=== PATIENT | male | born 1965 | race Caucasian/White ===

== ENCOUNTER 2018-01-04 06:45 | Day surgery (SDC) | END 2018-01-04 11:43 | disposition home or self-care (01) ==

== ENCOUNTER 2018-01-20 08:48 | Inpatient (IN) | END 2018-01-30 19:24 | disposition home health service (06) | DRG 872 ==

== ENCOUNTER 2018-09-07 19:18 | Inpatient (IN) | payer BC, OTHER ==
[~2018-09-07] VITALS: Ht 167.6 cm; Wt 130.6 kg
[~2018-09-07 19:18] MED LIST: ASPI-817 PO; CEFT1FRO2 IV; CLAR500T PO; Insulin Glargine SC; METF-849 PO; NOVO3I SC; PANT40TA4 PO; Vancomycin Iv Per Pharmacy XX
--- NOTE | 2018-09-07 19:52 | ERD ---
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 He states the skin "burst" over the right lateral foot yesterday and he is experienced some discharge from the right lateral foot as well as pain. He denies recent antibiotic therapy. He has had a fever today, denies cough or URI symptoms, no chest pain or shortness of breath, no abdominal pain. ROS All systems reviewed and are negative except as per history of present illness. Medications Home Meds Active Scripts Ceftriaxone Na/Dextrose,Iso (Ceftriaxone 1 gm Piggyback) 1 Gm/50 Ml Froz.piggy, 1 GM IV Q24H, #42 Last day 03/13/2018. Prov:LACEY MEYER NP 01/30/18 [Vancomycin Iv Per Pharmacy] 1 EA EACH No Conflict Check, 0 EA XX .PER PROTOCOL Last day 03/05/2018. Prov:LACEY MEYER NP 01/30/18 Clarithromycin* (Clarithromycin*) 500 Mg Tablet, 250 MG PO BID, #20 TAB Prov:LACEY MEYER NP 01/30/18 Metformin* (Glucophage*) 500 Mg Tab, 500 MG PO BID WITH MEALS, #60 TAB Prov:LACEY MEYER NP 01/30/18 Insulin Aspart* (Novolog Insulin Pen*) 100 Unit/Ml Soln, 6 UNIT SC WITH MEALS, #1 Prov:LACEY MEYER NP 01/30/18 [Insulin Glargine] 100 UNITS/ML SOLN No Conflict Check, 18 UNITS SC DAILY@1999, #1 Prov:LACEY MEYER NP 01/30/18 Pantoprazole* (Pantoprazole*) 40 Mg Tablet., 40 MG PO BID@, #60 Prov:LACEY MEYER NP 01/30/18 Aspirin* (Aspirin* EC) 81 Mg Tablet., 81 MG PO DAILY, #30 Prov:LACEY MEYER NP 01/30/18 Allergies Allergies: Coded Allergies: No Known Allergy (Unverified , 01/04/18) PMhx/Soc History of sepsis due to right lower extremity cellulitis and osteomyelitis of the right talus and calcaneus, gastritis, diabetes mellitus, anemia, peripheral vascular disease, right Charcot foot, right third toe amputation History of Surgery: Yes (rremoval of 3rd toe of the Rt foot) Anesthesia Reaction: No Hx Neurological Disorder: No Hx Respiratory Disorders: No Hx Cardiac Disorders: Yes (elevated BP) Hx Psychiatric Problems: No Hx Miscellaneous Medical Probl: Yes (diabetes mellitus type 2, obesity, and diabetic neuropathy) Hx Alcohol Use: Yes Hx Substance Use: No Hx Tobacco Use: No FmHx Family History: No diabetes Physical Exam Vitals Vital Signs Date Temp Pulse Resp B/P (MAP) Pulse Ox O2 O2 Flow FiO2 Time Delivery Rate 09/07/18 99.2 93 18 146/64 96 Room Air 19:30 (91) 09/07/18 101.1 100 24 150/67 96 19:27 (94) Physical Exam Const: No acute distress, febrile, well-developed well-nourished Resp: Clear to auscultation bilaterally Cardio: Tachycardic and regular, no murmurs Skin: Large zone of skin induration and erythema to the right foot over the plantar and lateral aspects with a large circular skin ulcer to the lateral aspect of the right foot with serosanguineous discharge and overall bony deformity consistent with Charcot foot. Ext: No cyanosis, calves symmetrical, 1+ pitting edema in the lower extremities bilaterally Neur: Awake and alert x3, no focal deficits or facial asymmetry Psych: Normal Mood and Affect Result Diagram: 09/07/18194709/07/181947 Results 24 hrs Laboratory Tests Test 09/07/18 19:45 09/07/18 19:48 POC Venous Lactate 1.9 mmol/L White Blood Count 18.0 10^3/ul Red Blood Count 4.96 10^6/ul Hemoglobin 13.1 g/dl Hematocrit 40.7 % Mean Corpuscular Volume 82.1 fl Mean Corpuscular Hemoglobin 26.4 pg Mean Corpuscular Hemoglobin Concent 32.2 g/dl Red Cell Distribution Width 13.0 % Platelet Count 247 10^3/UL Mean Platelet Volume 11.0 fl Immature Granulocytes % 0.500 % Neutrophils % 79.3 % Lymphocytes % 10.7 % Monocytes % 9.2 % Eosinophils % 0.1 % Basophils % 0.2 % Nucleated Red Blood Cells % 0.0 /100WBC Immature Granulocytes # 0.090 10^3/ul Neutrophils # 14.3 10^3/ul Lymphocytes # 1.9 10^3/ul Monocytes # 1.7 10^3/ul Eosinophils # 0.0 10^3/ul Basophils # 0.0 10^3/ul Nucleated Red Blood Cells # 0.0 10^3/ul Prothrombin Time 13.9 Sec Prothrombin Time Ratio 1.1 INR International Normalized Ratio 1.06 Activated Partial Thromboplast Time 40.1 Sec Sodium Level 134 mmol/L Potassium Level 3.8 mmol/L Chloride Level 95 mmol/L Carbon Dioxide Level 26 mmol/L Anion Gap 13 Blood Urea Nitrogen 19 mg/dl Creatinine 0.97 mg/dl Est Glomerular Filtrat Rate mL/min > 60 mL/min Glucose Level 249 mg/dl Calcium Level 8.7 mg/dl Total Bilirubin 0.6 mg/dl Direct Bilirubin 0.00 mg/dl Indirect Bilirubin 0.6 mg/dl Aspartate Amino Transf (AST/SGOT) 32 IU/L Alanine Aminotransferase (ALT/SGPT) 17 IU/L Alkaline Phosphatase 147 IU/L Total Protein 8.8 g/dl Albumin 3.9 g/dl Globulin 4.90 g/dl Albumin/Globulin Ratio 0.79 Lipase 14 U/L Current Medications Medications Dose Sig/Jewel Start Time Status Last (Trade) Ordered Route PRN Stop Time Admin Dose Reason Admin Ceftriaxone 50 ml @ ONCE ONCE 09/07/18 DC 09/07/18 Sodium 100 mls/hr IVPB 20:00 20:06 09/07/18 20:29 Piperacillin 100 ml @ ONCE ONCE 09/07/18 DC 09/07/18 Sod/ 200 mls/hr IVPB 20:00 20:28 Tazobactam 09/07/18 20:29 Sod Vancomycin 250 ml @ ONCE ONCE 09/07/18 DC 09/07/18 HCl 125 mls/hr IVPB 20:00 21:07 09/07/18 21:59 Ibuprofen 600 mg ONCE ONCE 09/07/18 DC 09/07/18 (Motrin) PO 20:00 20:07 09/07/18 20:01 Sodium 3,000 ml BOLUS OVER 2 09/07/18 DC 09/07/18 Chloride HOURS STAT 19:56 20:04 (NS) IV* 09/07/18 20:00 Procedures/MDM IV line was established patient was placed on cardiac care unit nurse rhythm strip revealed a sinus rhythm at about 90 bpm with upright P and T waves. Patient was febrile, blood and urine cultures have been ordered results are pending I will follow-up. EKG performed, read by me revealed a normal sinus rhythm at 94 bpm, left axis deviation, right ventricular conduction delay QRS duration 114 ms, no concerning ST elevations or depressions noted Chest X-ray 1V Interpreted by me: Soft Tissue: No acute abnormalities Bones: No acute abnormalities Mediastinum/Cardiac Silhouette/Lungs: No acute abnormalities Three-view x-ray of the right foot performed, read by me there is severe osteoarthritic changes to the midfoot consistent with severe Charcot foot and overall degenerative changes, right third toe amputation, no acute fracture dislocation noted. I administered 3 L normal saline IV, ibuprofen 600 mg p.o., ceftriaxone 1 g IV, vancomycin 1 g IV, Zosyn 3.375 g IV. CBC reveals a leukocytosis at 18, electrolytes revealed dehydration with a BU N/creatinine of 19/1, liver function tests were normal, lactic acid level was low at 1.9. I do not suspect sepsis. Patient admitted to [facility] for continued IV antibiotic therapy Departure Diagnosis: Primary Impression: Cellulitis of right foot Additional Impressions: Diabetic ulcer of right foot Diabetic foot ulcer location: midfoot Diabetes mellitus type: type 2 Non- pressure ulcer stage: limited to breakdown of skin Qualified Codes: E11.621 - Type 2 diabetes mellitus with foot ulcer; L97.411 - Non-pressure chronic ulcer of right heel and midfoot limited to breakdown of skin Charcot's joint of right foot Condition: ELIANE Castle MD Sep 07, 2018 19:52
[2018-09-07] MEDS ORDERED: SODIUM CHLORIDE 0.9% 1L BAG IV* STA (19:56)
[2018-09-07] MEDS ORDERED: VANCOMYCIN 1 GM (PMX) 250 ML IVPB ONE (20:00)
[2018-09-07] MEDS ORDERED: IBUPROFEN 600 MG TAB PO ONE (20:00)
[2018-09-07] MEDS ORDERED: PIPER-TAZO 3.375 GM IV (PMX) 100 ML IVPB ONE (20:00)
[2018-09-07] MEDS ORDERED: CEFTRIAXONE 1 GM/50 ML (PMX) 50 ML IVPB ONE (20:00)
[2018-09-08] VITALS (10 sets, daily range): BP systolic 141–178; BP diastolic 60–87; PULSE 63–110; RESP 16–32; Ht 167.6 cm; Wt 130.6 kg
[2018-09-08] MEDS ORDERED: PENDING SANTYL ORDER FOR WOUND CARE XX PRN (01:30)
[2018-09-08] MEDS ORDERED: COLLAGENASE 5 GM (UD JAR) TOP ONE (01:33)
[2018-09-08] MEDS ORDERED: COLLAGENASE 5 GM (UD JAR) TOP PRN (02:00)
[2018-09-08] MEDS ORDERED: INSU100C SQ (02:01)
[2018-09-08] MEDS ORDERED: NACL 0.9% 3 ML SYG IV SCH (02:30)
[2018-09-08] MEDS ORDERED: ACETAMINOPHEN 325 MG TAB PO PRN (02:30)
[2018-09-08] MEDS ORDERED: ALBUTEROL/IPRATROPIUM (NEB) 3 ML AMP HHN PRN (02:30)
[2018-09-08] MEDS ORDERED: ONDANSETRON 4 MG INJ IV PRN (02:30)
[2018-09-08] MEDS ORDERED: HYDROCODONE/APAP (5/325) TAB PO PRN ×2 (02:30)
[2018-09-08] MEDS ORDERED: VANCOMYCIN IV PER PHARMACY XX SCH (02:30)
[2018-09-08] MEDS ORDERED: VANCOMYCIN 1 GM 250 ML IVPB ONE (03:00)
[2018-09-08] MEDS: SOD CHLORIDE 0.9% 1,000 ML IV SCH ×2 (03:29→12:30)
[2018-09-08] MEDS: PANTOPRAZOLE (EC) 40 MG TAB PO SCH ×2 (06:16→17:13)
--- NOTE | 2018-09-08 07:33 | HP ---
Date/Time of Note Date/Time of Note DATE: 09/07/18 TIME: 22:00 Assessment/Plan VTE Prophylaxis Pharmacological prophylaxis: heparin Lines/Catheters IV Catheter Type (from Nrsg): [place] Assessment/Plan Assessment/Plan 1. Right foot infection, with possible osteomyelitis -IV antibiotic -Podiatry consult -We will let podiatry decide about the need for MRI -ID and wound care consult -Wound culture 2. Hypertension: Continue meds, adjust as needed 3. Dyslipidemia: Continue statin 4. Morbid obesity with a BMI of 46: Weight reduction advised 5. Insulin-dependent diabetes: Continue insulin, adjust as needed 6. History of gastric ulcer: PPI Result Diagram: 09/08/18 0653 09/07/181947 Results 24hrs Laboratory Tests Test 09/07/18 19:45 09/07/18 19:48 09/07/18 22:42 09/08/18 06:53 POC Venous Lactate 1.9 White Blood Count 18.0 #H 14.4 H Red Blood Count 4.96 # 4.31 L Hemoglobin 13.1 #L 11.4 L Hematocrit 40.7 #L 35.7 L Mean Corpuscular 82.1 82.8 Volume Mean Corpuscular 26.4 L 26.5 L Hemoglobin Mean Corpuscular 32.2 31.9 L Hemoglobin Concent Red Cell 13.0 13.2 Distribution Width Platelet Count 247 # 194 # Mean Platelet Volume 11.0 H 10.0 Immature 0.500 H 0.700 H Granulocytes % Neutrophils % 79.3 H 75.6 Lymphocytes % 10.7 L 11.0 L Monocytes % 9.2 11.1 H Eosinophils % 0.1 1.3 Basophils % 0.2 0.3 Nucleated Red Blood 0.0 0.0 Cells % Immature 0.090 H 0.100 H Granulocytes # Neutrophils # 14.3 H 10.9 H Lymphocytes # 1.9 1.6 Monocytes # 1.7 H 1.6 H Eosinophils # 0.0 0.2 Basophils # 0.0 0.1 Nucleated Red Blood 0.0 0.0 Cells # Prothrombin Time 13.9 Prothrombin Time 1.1 Ratio INR International 1.06 Normalized Ratio Activated 40.1 H Partial Thromboplast Time Sodium Level 134 L Potassium Level 3.8 Chloride Level 95 L Carbon Dioxide Level 26 Anion Gap 13 Blood Urea Nitrogen 19 Creatinine 0.97 Est Glomerular > 60 Filtrat Rate mL/min Glucose Level 249 H Calcium Level 8.7 Total Bilirubin 0.6 Direct Bilirubin 0.00 Indirect Bilirubin 0.6 Aspartate Amino 32 Transf (AST/SGOT) Alanine 17 Aminotransferase (AL T/SGPT) Alkaline Phosphatase 147 H Total Protein 8.8 H Albumin 3.9 Globulin 4.90 H Albumin/Globulin 0.79 Ratio Lipase 14 L Lactic Acid Level 1.3 HPI/ROS Admit Date/Time Admit Date/Time Sep 07, 2018 at 20:34 Hx of Present Illness Patient is a 53-year-old obese male with a history of hypertension, insulin- dependent diabetes, gastric ulcer, severe right foods Charcot deformity, right foot infection, right third toe amputation who presented to ER complaining of right foods swelling and drainage. He said that he had similar problems in January of last year. He was wearing a special shoe, however for the past 2 months he has not been wearing it and that he thinks that what caused his current problem. He said it started out as a swelling and then started leaking. Right foot x-ray in the ER shows a severe Charcot deformity of the need food bolus and a severe erosive change, unchanged from the x-ray from February and in January of last year. PMH/Family/Social Past Medical History Past Surgical Hx: other (see hpi) Family History Significant Family History: no pertinent family hx Social History Alcohol Use: none Smoking Status: Never smoker Drug Use: none Exam Constitutional: other (no acute distress) Head: normocephalic, atraumatic Eyes: EOMI, PERRL Respiratory: clear to auscultation, normal air movement Cardiovascular: nl pulses Gastrointestinal: soft Extremities: normal pulses Medications Current Medications Collagenase (Santyl) 1 applic DAILY TOP ; Start 09/08/18 at 09:00 Collagenase (Santyl) 1 applic PRN PRN TOP WHEN SOILED Last administered on 09/08/18at 01:55; Admin Dose 1 APPLIC; Start 09/08/18 at 02:00 Sodium Chloride 1,000 ml @ 100 mls/hr Q10H IV Last administered on 09/08/18at 03:29; Admin Dose 100 MLS/HR; Start 09/08/18 at 02:30; Stop 09/08/18 at 23:00 IV Flush (NS 3 ml) 3 ml PER PROTOCOL IV ; Start 09/08/18 at 02:30 Ondansetron HCl (Zofran Inj) 4 mg Q6H PRN IV NAUSEA/VOMITING; Start 09/08/18 at 02:30 Acetaminophen (Tylenol Tab) 650 mg Q6H PRN PO .PAIN 1-3 OR TEMP; Start 09/08/18 at 02:30 Acetaminophen/ Hydrocodone Bitart ([place] (5/325)) 1 tab Q6H PRN PO .MOD PAIN 4- 6; Start 09/08/18 at 02:30 Acetaminophen/ Hydrocodone Bitart ([place] (5/325)) 2 tab Q6H PRN PO .SEVERE PAIN 7-10; Start 09/08/18 at 02:30 Heparin Sodium (Porcine) (Heparin (5000 Units/1ml)) 5,000 unit Q12 SC ; Start 09/08/18 at 09:00 Albuterol/ Ipratropium (Duoneb) 3 ml Q2H RESP THERAPY PRN HHN SHORTNESS OF BREATH; Start 09/08/18 at 02:30 Aspirin (Halfprin) 81 mg DAILY PO ; Start 09/08/18 at 09:00 Insulin Aspart (Novolog Insulin Pen) 6 unit WITH MEALS SC ; Start 09/08/18 at 08:00 Pantoprazole (Protonix Tab) 40 mg BID@06,18 PO Last administered on 09/08/18at 06:16; Admin Dose 40 MG; Start 09/08/18 at 06:00 Vancomycin HCl (Vanco Iv Per Pharmacy) VANCOMYCIN PER PHARMACY PER PROTOCOL XX ; Start 09/08/18 at 02:30 Cefepime HCl 50 ml @ 100 mls/hr Q12 IVPB ; Start 09/08/18 at 09:00 Diagnostic Test (Pha) (Accu-Chek) XX ; Start 09/09/18 at 02:00 Insulin Aspart (Novolog Insulin Pen) NOVOLOG *MILD* ALGORITHM WITH MEALS BEDTIME SC ; Start 09/08/18 at 08:00 Insulin Glargine (Lantus) 18 units DAILY@2000 SC ; Start 09/08/18 at 20:00 Vancomycin HCl 2 gm/Sodium Chloride 500 ml @ 125 mls/hr Q12H IVPB ; Start 09/08/18 at 09:00 Miscellaneous Information (*Rx Drug Level Order Reminder*) VANCOMYCIN TROUGH LEVEL 2000 ONCE XX ; Start 09/09/18 at 20:00; Stop 09/09/18 at 20:01 Coded Allergies: No Known Allergy (Unverified , 01/04/18) Family History Significant Family History: diabetes Social History Smoking Status: Never smoker Exam/Review of Systems Vital Signs Vitals Vital Signs Date Temp Pulse Resp B/P (MAP) Pulse Ox O2 O2 Flow FiO2 Time Delivery Rate 09/08/18 98.3 63 18 146/74 99 02:48 (98) 09/08/18 Room Air 00:27 Intake and Output 09/07/18 09/07/18 09/08/18 1515:00 23:00 07:00 IntakeIntake Total 3650 ml BalanceBalance 3650 ml HUMA LACKEY MD Sep 08, 2018 07:33
[2018-09-08] MEDS: INSULIN ASPART [NOVOLOG] 3 ML PEN SC SCH ×7 (08:38→20:27)
[2018-09-08] MEDS: ASPIRIN (EC) 81 MG TAB PO SCH (08:40)
[2018-09-08] MEDS: HEPARIN 5,000 UNIT/1 ML VIAL SC SCH ×2 (08:41→20:28)
[2018-09-08] MEDS: COLLAGENASE 5 GM (UD JAR) TOP SCH (08:41)
[2018-09-08] MEDS: CEFEPIME 1GM/50 ML (PMX) 50 ML IVPB SCH ×2 (08:41→23:01)
[2018-09-08] MEDS ORDERED: VANCOMYCIN HCL 2 GM in SOD CHLORIDE 0.9% 500 ML IVPB SCH (09:00)
[2018-09-08] MEDS: VANCOMYCIN 1 GM 250 ML IVPB SCH ×2 (11:37→20:24)
--- NOTE | 2018-09-08 12:15 | PN ---
Date/Time of Note Date/Time of Note DATE: 09/08/18 TIME: 12:15 Objective Vitals Vital Signs Date Temp Pulse Resp B/P (MAP) Pulse Ox O2 O2 Flow FiO2 Time Delivery Rate 09/08/18 97.8 87 18 147/61 99 07:52 (89) 09/08/18 Room Air 00:27 Intake and Output 09/07/18 09/07/18 09/08/18 1515:00 23:00 07:00 IntakeIntake Total 3650 ml BalanceBalance 3650 ml Results Result Diagram: 09/08/18 0653 09/08/18 0653 Medications Medications Current Medications Collagenase (Santyl) 1 applic DAILY TOP Last administered on 09/08/18at 08:41; Admin Dose 1 APPLIC; Start 09/08/18 at 09:00 Collagenase (Santyl) 1 applic PRN PRN TOP WHEN SOILED Last administered on 09/08/18at 01:55; Admin Dose 1 APPLIC; Start 09/08/18 at 02:00 Sodium Chloride 1,000 ml @ 100 mls/hr Q10H IV Last administered on 09/08/18at 03:29; Admin Dose 100 MLS/HR; Start 09/08/18 at 02:30; Stop 09/08/18 at 23:00 IV Flush (NS 3 ml) 3 ml PER PROTOCOL IV ; Start 09/08/18 at 02:30 Ondansetron HCl (Zofran Inj) 4 mg Q6H PRN IV NAUSEA/VOMITING; Start 09/08/18 at 02:30 Acetaminophen (Tylenol Tab) 650 mg Q6H PRN PO .PAIN 1-3 OR TEMP; Start 09/08/18 at 02:30 Acetaminophen/ Hydrocodone Bitart ([place] (5/325)) 1 tab Q6H PRN PO .MOD PAIN 4- 6; Start 09/08/18 at 02:30 Acetaminophen/ Hydrocodone Bitart ([place] (5/325)) 2 tab Q6H PRN PO .SEVERE PAIN 7-10; Start 09/08/18 at 02:30 Heparin Sodium (Porcine) (Heparin (5000 Units/1ml)) 5,000 unit Q12 SC Last administered on 09/08/18at 08:41; Admin Dose 5,000 UNIT; Start 09/08/18 at 09:00 Albuterol/ Ipratropium (Duoneb) 3 ml Q2H RESP THERAPY PRN HHN SHORTNESS OF BREATH; Start 09/08/18 at 02:30 Aspirin (Halfprin) 81 mg DAILY PO Last administered on 09/08/18 08:40; Admin Dose 81 MG; Start 09/08/18 at 09:00 Insulin Aspart (Novolog Insulin Pen) 6 unit WITH MEALS SC Last administered on 09/08/18 08:39; Admin Dose 6 UNIT; Start 09/08/18 at 08:00 Pantoprazole (Protonix Tab) 40 mg BID@06,18 PO Last administered on 09/08/18 06:16; Admin Dose 40 MG; Start 09/08/18 at 06:00 Vancomycin HCl (Vanco Iv Per Pharmacy) VANCOMYCIN PER PHARMACY PER PROTOCOL XX ; Start 09/08/18 at 02:30 Cefepime HCl 50 ml @ 100 mls/hr Q12 IVPB Last administered on 09/08/18 08:41; Admin Dose 100 MLS/HR; Start 09/08/18 at 09:00 Diagnostic Test (Pha) (Accu-Chek) 1 ea 02 XX ; Start 09/09/18 at 02:00 Insulin Aspart (Novolog Insulin Pen) NOVOLOG *MILD* ALGORITHM WITH MEALS BEDTIME SC Last administered on 09/08/18 08:38; Admin Dose 1 UNIT; Start 09/08/18 at 08:00 Insulin Glargine (Lantus) 18 units DAILY@2000 SC ; Start 09/08/18 at 20:00 Miscellaneous Information (*Rx Drug Level Order Reminder*) VANCOMYCIN TROUGH LEVEL 0200 ONCE XX ; Start 09/09/18 at 02:00; Stop 09/09/18 at 02:01 Vancomycin HCl 250 ml @ 125 mls/hr Q8H IVPB Last administered on 09/08/18at 11:37; Admin Dose 125 MLS/HR; Start 09/08/18 at 11:00 VTE Prophylaxis Risk score (from Nsg)>0 risk: 4 SCD applied (from Nsg): Yes Lines/Catheters IV Catheter Type: Mor[place] in Place: No Assessment/Plan Hospital Course This is a short progress note as H&P was done earlier today. 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 Mclaughlin and, also consulted infectious disease. Continue IV antibiotics. Pending Dr. Mclaughlin recommendations regarding MRI. ELIANE RUSSELL Sep 08, 2018 12:15
--- NOTE | 2018-09-08 12:36 | CONS ---
DATE OF ADMISSION: 09/07/2018 DATE OF CONSULTATION: 09/08/2018 CONTINUATION: FAMILY HISTORY: Noncontributory, as noted. SOCIAL HISTORY: He does drink. He does not smoke or abuse drugs. ALLERGIES: NONE TO PENICILLIN, SULFA OR FOODS. MEDICATIONS: Per chart. REVIEW OF SYSTEMS: Noncontributory. PHYSICAL EXAMINATION: GENERAL: The patient is in no acute distress. VITAL SIGNS: Temperature 101.1 in the emergency room. SKIN: Without generalized rash. HEENT: Within normal limits. NECK: Supple. LYMPH NODES: None palpable. CHEST: Decreased breath sounds at the bases. HEART: Tachycardic without murmur or gallop. ABDOMEN: Soft, nontender without organosplenomegaly or masses. EXTREMITIES: No cyanosis or clubbing. He has 1+ edema. There is a large zone of skin induration an d erythema in the right foot over the plantar and lateral aspect with large circular skin ulcer to th e lateral aspect of the right foot with serosanguineous discharge overall consistent seen with [place] t foot. RECTAL AND GENITAL: Deferred. NEUROLOGIC: No focal neurological abnormalities. ANCILLARY LABORATORY DATA: White count of 18,000, H and H of 13.1 and 40.7, platelet count 247,000. BUN and creatinine is 19/0.97, glucose of 249. The patient has 79% neutrophils. He was placed on v ancomycin and Zosyn. DIAGNOSTIC DATA: Chest x-ray showed no acute abnormalities. IMPRESSION: Cellulitis of the right foot in diabetic with a foot ulcer and Charcot joint. The patie nt is a patient of Dr. Mclaughlin. We have right foot infection with possible osteomyelitis. Podiatr y will decide about the need for MRI. We will continue him on vancomycin and Zosyn. Wound culture w as ordered. White count on 09/07/2018 was 14.4. The patient is with morbid obesity. We will contin ue him on current therapy. Dictated By: KRYSTAL JIMÉNEZ MD, JD/REGINE Conf#: [id number] DID#: [id number] CC: HUMA LACKEY MD; ELIANE RUSSELL MD;*EndCC*
--- NOTE | 2018-09-08 14:24 | CONS ---
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 Patient will likely need staged procedures to achieve wound closure. X-rays reviewed, no soft tissue gas appreciated. MRI and non invasive arterial studies ordered. Wound cultures ordered as well. Patient will need to be non weight bearing to right lower extremity. Recommend ID consultation and likely will need custodial IV abx. Consultation Date/Type/Reason Admit Date/Time Sep 07, 2018 at 20:34 Date/Time of Note DATE: 09/08/18 TIME: 14:21 Hx of Present Illness 53 y/o diabetic M patient who was previously following up in the wound care clinic had chronic charcot neuroarthropathy. Patient at the time had active charcot and was not a good surgical candidate at the time. Patient was being managed conservatively with offloading and casting. Patient states that he was recently using a walking boot which was not functioning properly causing him irritation. He also started working out and over time developed a blister which slowing became worse and developed an infection. Patient due to insurance reasons was not able to follow up in the wound care clinic. Patient denies f/c/n/v no chest pain or shortness of breath. Reports dull aching pain to ulceration site of right foot 4/10 and non-radiating. ROS Negative except for HPI Past Medical History hypertension, insulin-dependent diabetes, gastric ulcer, severe right foods Charcot deformity, right foot infection, right third toe amputation Home Meds Active Scripts Ceftriaxone Na/Dextrose,Iso (Ceftriaxone 1 gm Piggyback) 1 Gm/50 Ml Froz.piggy, 1 GM IV Q24H, #42 Last day 03/13/2018. Prov:LACEY MEYER NP 01/30/18 [Vancomycin Iv Per Pharmacy] 1 EA EACH No Conflict Check, 0 EA XX .PER PROTOCOL Last day 03/05/2018. Prov:LACEY MEYER NP 01/30/18 Clarithromycin* (Clarithromycin*) 500 Mg Tablet, 250 MG PO BID, #20 TAB Prov:LACEY MEYER NP 01/30/18 Metformin* (Glucophage*) 500 Mg Tab, 500 MG PO BID WITH MEALS, #60 TAB Prov:LACEY MEYER NP 01/30/18 Insulin Aspart* (Novolog Insulin Pen*) 100 Unit/Ml Soln, 6 UNIT SC WITH MEALS, #1 Prov:LACEY MEYER NP 01/30/18 [Insulin Glargine] 100 UNITS/ML SOLN No Conflict Check, 18 UNITS SC DAILY@1999, #1 Prov:LACEY MEYER NP 01/30/18 Pantoprazole* (Pantoprazole*) 40 Mg Tablet., 40 MG PO BID@,18, #60 Prov:LACEY MEYER NP 01/30/18 Aspirin* (Aspirin* EC) 81 Mg Tablet., 81 MG PO DAILY, #30 Prov:LACEY MEYER NP 01/30/18 Reported Medications Insulin Lispro (Humalog) 100 Unit/1 Ml Cartridge, 10 UNIT SQ AC MEALS, EA 09/08/18 Medications Current Medications Collagenase (Santyl) 1 applic DAILY TOP Last administered on 09/08/18at 08:41; Admin Dose 1 APPLIC; Start 09/08/18 at 09:00 Collagenase (Santyl) 1 applic PRN PRN TOP WHEN SOILED Last administered on 09/08/18at 01:55; Admin Dose 1 APPLIC; Start 09/08/18 at 02:00 IV Flush (NS 3 ml) 3 ml PER PROTOCOL IV ; Start 09/08/18 at 02:30 Ondansetron HCl (Zofran Inj) 4 mg Q6H PRN IV NAUSEA/VOMITING; Start 09/08/18 at 02:30 Acetaminophen (Tylenol Tab) 650 mg Q6H PRN PO .PAIN 1-3 OR TEMP; Start 09/08/18 at 02:30 Acetaminophen/ Hydrocodone Bitart ([place] (5/325)) 1 tab Q6H PRN PO .MOD PAIN 4- 6; Start 09/08/18 at 02:30 Acetaminophen/ Hydrocodone Bitart ([place] (5/325)) 2 tab Q6H PRN PO .SEVERE PAIN 7-10; Start 09/08/18 at 02:30 Heparin Sodium (Porcine) (Heparin (5000 Units/1ml)) 5,000 unit Q12 SC Last administered on 09/08/18at 08:41; Admin Dose 5,000 UNIT; Start 09/08/18 at 09:00 Albuterol/ Ipratropium (Duoneb) 3 ml Q2H RESP THERAPY PRN HHN SHORTNESS OF BREATH; Start 09/08/18 at 02:30 Aspirin (Halfprin) 81 mg DAILY PO Last administered on 09/08/18 08:40; Admin D ose 81 MG; Start 09/08/18 at 09:00 Insulin Aspart (Novolog Insulin Pen) 6 unit WITH MEALS SC Last administered on 09/08/18at 12:37; Admin Dose 6 UNIT; Start 09/08/18 at 08:00 Pantoprazole (Protonix Tab) 40 mg BID@06,18 PO Last administered on 09/08/18 06:16; Admin Dose 40 MG; Start 09/08/18 at 06:00 Vancomycin HCl (Vanco Iv Per Pharmacy) VANCOMYCIN PER PHARMACY PER PROTOCOL XX ; Start 09/08/18 at 02:30 Cefepime HCl 50 ml @ 100 mls/hr Q12 IVPB Last administered on 09/08/18at 08:41; Admin Dose 100 MLS/HR; Start 09/08/18 at 09:00 Diagnostic Test (Pha) (Accu-Chek) 1 ea 02 XX ; Start 09/09/18 at 02:00 Insulin Aspart (Novolog Insulin Pen) NOVOLOG *MILD* ALGORITHM WITH MEALS BEDTIME SC Last administered on 09/08/18at 12:37; Admin Dose 2 UNIT; Start 09/08/18 at 08:00 Insulin Glargine (Lantus) 18 units DAILY@2000 SC ; Start 09/08/18 at 20:00 Miscellaneous Information (*Rx Drug Level Order Reminder*) VANCOMYCIN TROUGH LEVEL 0200 ONCE XX ; Start 09/09/18 at 02:00; Stop 09/09/18 at 02:01 Vancomycin HCl 250 ml @ 125 mls/hr Q8H IVPB Last administered on 09/08/18at 11:37; Admin Dose 125 MLS/HR; Start 09/08/18 at 11:00 Multivitamins/ Minerals (Theragran-M) 1 tab DAILY PO ; Start 09/09/18 at 09:00 Ascorbic Acid (Vitamin C) 500 mg BID PO ; Start 09/08/18 at 21:00 Allergies: Coded Allergies: No Known Allergy (Unverified , 01/04/18) Past Surgical History right foot 3rd digit amputation Family History Significant Family History: no pertinent family hx Social History Smoking Status: Never smoker Exam/Review of Systems Exam Vitals Vital Signs Date Temp Pulse Resp B/P (MAP) Pulse Ox O2 O2 Flow FiO2 Time Delivery Rate 09/08/18 97.8 87 18 147/61 99 07:52 (89) 09/08/18 Room Air 00:27 Intake and Output 09/07/18 09/07/18 09/08/18 1515:00 23:00 07:00 IntakeIntake Total 3650 ml BalanceBalance 3650 ml Exam DP pulses palpable, unable to palpate PT 2+ pitting edema to right foot Absent protective sensations Right foot 3rd digit amputation Pain on palpation to ulceration site Right foot dorsal lateral ulceration 3 x 3 x 0.4cm with purulent drainage and surrounding erythema, fibrotic wound base Right plantar foot ulceration 5 x 3 x 0.2cm purulent drainage and surrounding erythema, fibrotic wound base Midfoot arch collapse, loss of medial longitudinal arch right foot. Foot warm to touch. Results Result Diagram: 09/08/18 0653 09/08/18 0653 Results 24hrs Laboratory Tests Test 09/07/18 19:45 09/07/18 19:48 09/07/18 22:42 09/08/18 06:53 POC Venous Lactate 1.9 White Blood Count 18.0 #H 14.4 H Red Blood Count 4.96 # 4.31 L Hemoglobin 13.1 #L 11.4 L Hematocrit 40.7 #L 35.7 L Mean Corpuscular 82.1 82.8 Volume Mean Corpuscular 26.4 L 26.5 L Hemoglobin Mean Corpuscular 32.2 31.9 L Hemoglobin Concent Red Cell 13.0 13.2 Distribution Width Platelet Count 247 # 194 # Mean Platelet Volume 11.0 H 10.0 Immature 0.500 H 0.700 H Granulocytes % Neutrophils % 79.3 H 75.6 Lymphocytes % 10.7 L 11.0 L Monocytes % 9.2 11.1 H Eosinophils % 0.1 1.3 Basophils % 0.2 0.3 Nucleated Red Blood 0.0 0.0 Cells % Immature 0.090 H 0.100 H Granulocytes # Neutrophils # 14.3 H 10.9 H Lymphocytes # 1.9 1.6 Monocytes # 1.7 H 1.6 H Eosinophils # 0.0 0.2 Basophils # 0.0 0.1 Nucleated Red Blood 0.0 0.0 Cells # Prothrombin Time 13.9 Prothrombin Time 1.1 Ratio INR International 1.06 Normalized Ratio Activated 40.1 H Partial Thromboplast Time Sodium Level 134 L 139 Potassium Level 3.8 4.0 Chloride Level 95 L 106 # Carbon Dioxide Level 26 25 Anion Gap 13 8 Blood Urea Nitrogen 19 14 Creatinine 0.97 0.71 Est Glomerular > 60 > 60 Filtrat Rate mL/min Glucose Level 249 H 153 Calcium Level 8.7 8.0 L Total Bilirubin 0.6 0.5 Direct Bilirubin 0.00 0.00 Indirect Bilirubin 0.6 0.5 Aspartate Amino 32 31 Transf (AST/SGOT) Alanine 17 22 Aminotransferase (AL T/SGPT) Alkaline Phosphatase 147 H 110 Total Protein 8.8 H 7.4 # Albumin 3.9 3.2 L Globulin 4.90 H 4.20 H Albumin/Globulin 0.79 0.76 Ratio Lipase 14 L Lactic Acid Level 1.3 Hemoglobin A1c 8.8 H Phosphorus Level 2.5 Magnesium Level 2.2 Triglycerides Level 93 Cholesterol Level 100 LDL Cholesterol, 68 Calculated HDL Cholesterol 13 L Cholesterol/HDL 7.6 Ratio Test 09/08/18 08:35 09/08/18 12:34 Bedside Glucose 150 198 Medications Medication Current Medications Collagenase (Santyl) 1 applic DAILY TOP Last administered on 09/08/18at 08:41; Admin Dose 1 APPLIC; Start 09/08/18 at 09:00 Collagenase (Santyl) 1 applic PRN PRN TOP WHEN SOILED Last administered on 09/08/18at 01:55; Admin Dose 1 APPLIC; Start 09/08/18 at 02:00 IV Flush (NS 3 ml) 3 ml PER PROTOCOL IV ; Start 09/08/18 at 02:30 Ondansetron HCl (Zofran Inj) 4 mg Q6H PRN IV NAUSEA/VOMITING; Start 09/08/18 at 02:30 Acetaminophen (Tylenol Tab) 650 mg Q6H PRN PO .PAIN 1-3 OR TEMP; Start 09/08/18 at 02:30 Acetaminophen/ Hydrocodone Bitart ([place] (5/325)) 1 tab Q6H PRN PO .MOD PAIN 4- 6; Start 09/08/18 at 02:30 Acetaminophen/ Hydrocodone Bitart ([place] (5/325)) 2 tab Q6H PRN PO .SEVERE PAIN 7-10; Start 09/08/18 at 02:30 Heparin Sodium (Porcine) (Heparin (5000 Units/1ml)) 5,000 unit Q12 SC Last administered on 09/08/18 08:41; Admin Dose 5,000 UNIT; Start 09/08/18 at 09:00 Albuterol/ Ipratropium (Duoneb) 3 ml Q2H RESP THERAPY PRN HHN SHORTNESS OF BREATH; Start 09/08/18 at 02:30 Aspirin (Halfprin) 81 mg DAILY PO Last administered on 09/08/18 08:40; Admin Dose 81 MG; Start 09/08/18 at 09:00 Insulin Aspart (Novolog Insulin Pen) 6 unit WITH MEALS SC Last administered on 09/08/18 12:37; Admin Dose 6 UNIT; Start 09/08/18 at 08:00 Pantoprazole (Protonix Tab) 40 mg BID@06,18 PO Last administered on 09/08/18 06:16; Admin Dose 40 MG; Start 09/08/18 at 06:00 Vancomycin HCl (Vanco Iv Per Pharmacy) VANCOMYCIN PER PHARMACY PER PROTOCOL XX ; Start 09/08/18 at 02:30 Cefepime HCl 50 ml @ 100 mls/hr Q12 IVPB Last administered on 09/08/18 08:41; Admin Dose 100 MLS/HR; Start 09/08/18 at 09:00 Diagnostic Test (Pha) (Accu-Chek) 1 ea 02 XX ; Start 09/09/18 at 02:00 Insulin Aspart (Novolog Insulin Pen) NOVOLOG *MILD* ALGORITHM WITH MEALS BEDTIME SC Last administered on 09/08/18at 12:37; Admin Dose 2 UNIT; Start 09/08/18 at 08:00 Insulin Glargine (Lantus) 18 units DAILY@2000 SC ; Start 09/08/18 at 20:00 Miscellaneous Information (*Rx Drug Level Order Reminder*) VANCOMYCIN TROUGH LEVEL 0200 ONCE XX ; Start 09/09/18 at 02:00; Stop 09/09/18 at 02:01 Vancomycin HCl 250 ml @ 125 mls/hr Q8H IVPB Last administered on 09/08/18at 11:37; Admin Dose 125 MLS/HR; Start 09/08/18 at 11:00 Multivitamins/ Minerals (Theragran-M) 1 tab DAILY PO ; Start 09/09/18 at 09:00 Ascorbic Acid (Vitamin C) 500 mg BID PO ; Start 09/08/18 at 21:00 CARLOS SHEPPARD DPM Sep 08, 2018 14:24
--- NOTE | 2018-09-08 16:31 | HPN ---
Date/Time of Note Date/Time of Note DATE: 09/08/18 TIME: 16:31 Interval H&P Admission Note Pt. seen H&P reviewed: No system changes CARLOS SHEPPARD DPM Sep 08, 2018 16:31
[2018-09-08] MEDS ORDERED: POLYMYXIN/BACITRACIN 1L IRRIG ONE (16:34)
[2018-09-08] MEDS ORDERED: BACITRACIN 50000 UNITS INJ ONE (16:34)
[2018-09-08] MEDS ORDERED: POLYMYXIN B 500000 UNIT INJ ONE (16:35)
--- NOTE | 2018-09-08 16:52 | PREAC ---
Date/Time of Note Date/Time of Note DATE: 09/08/18 TIME: 16:50 Anesthesia Eval and Record Evaluation Time Pre-Procedure Interview DATE: 09/08/18 TIME: 16:50 Age 53 Sex male NPO: Other (5 hr) Preoperative diagnosis Right Foot Cellulitis and Osteomyelitis Planned procedure I&D of Right foot possible flap Past Medical History Past Medical History: Includes Cardio: HTN, Dyslipidemia Endo: Diabetes GI: Obesity Heme: Anemia Surgery & Anesthesia Issues No known issue Meds Anticoagulation: No Beta Kalli within 24 hr: No Reason Beta Kalli not given: Pt. not on B-Kalli Active Scripts Ceftriaxone Na/Dextrose,Iso (Ceftriaxone 1 gm Piggyback) 1 Gm/50 Ml Froz.piggy, 1 GM IV Q24H, #42 Last day 03/13/2018. Prov:LACEY MEYER NP 01/30/18 [Vancomycin Iv Per Pharmacy] 1 EA EACH No Conflict Check, 0 EA XX .PER PROTOCOL Last day 03/05/2018. Prov:LACEY MEYER NP 01/30/18 Clarithromycin* (Clarithromycin*) 500 Mg Tablet, 250 MG PO BID, #20 TAB Prov:LACEY MEYER NP 01/30/18 Metformin* (Glucophage*) 500 Mg Tab, 500 MG PO BID WITH MEALS, #60 TAB Prov:LACEY EMYER NP 01/30/18 Insulin Aspart* (Novolog Insulin Pen*) 100 Unit/Ml Soln, 6 UNIT SC WITH MEALS, #1 Prov:LACEY MEYER NP 01/30/18 [Insulin Glargine] 100 UNITS/ML SOLN No Conflict Check, 18 UNITS SC DAILY@1999, #1 Prov:LACEY MEYER NP 01/30/18 Pantoprazole* (Pantoprazole*) 40 Mg Tablet., 40 MG PO BID@, #60 Prov:LACEY MEYER NP 01/30/18 Aspirin* (Aspirin* EC) 81 Mg Tablet., 81 MG PO DAILY, #30 Prov:LACEY MEYER NP 01/30/18 Reported Medications Insulin Lispro (Humalog) 100 Unit/1 Ml Cartridge, 10 UNIT SQ AC MEALS, EA 09/08/18 Current Medications Collagenase (Santyl) 1 applic DAILY TOP Last administered on 09/08/18at 08:41; Admin Dose 1 APPLIC; Start 09/08/18 at 09:00 Collagenase (Santyl) 1 applic PRN PRN TOP WHEN SOILED Last administered on 09/08/18at 01:55; Admin Dose 1 APPLIC; Start 09/08/18 at 02:00 IV Flush (NS 3 ml) 3 ml PER PROTOCOL IV ; Start 09/08/18 at 02:30 Ondansetron HCl (Zofran Inj) 4 mg Q6H PRN IV NAUSEA/VOMITING; Start 09/08/18 at 02:30 Acetaminophen (Tylenol Tab) 650 mg Q6H PRN PO .PAIN 1-3 OR TEMP; Start 09/08/18 at 02:30 Acetaminophen/ Hydrocodone Bitart ([place] (5/325)) 1 tab Q6H PRN PO .MOD PAIN 4- 6; Start 09/08/18 at 02:30 Acetaminophen/ Hydrocodone Bitart ([place] (5/325)) 2 tab Q6H PRN PO .SEVERE PAIN 7-10; Start 09/08/18 at 02:30 Heparin Sodium (Porcine) (Heparin (5000 Units/1ml)) 5,000 unit Q12 SC Last administered on 09/08/18at 08:41; Admin Dose 5,000 UNIT; Start 09/08/18 at 09:00 Albuterol/ Ipratropium (Duoneb) 3 ml Q2H RESP THERAPY PRN HHN SHORTNESS OF BREATH; Start 09/08/18 at 02:30 Aspirin (Halfprin) 81 mg DAILY PO Last administered on 09/08/18at 08:40; Admin Dose 81 MG; Start 09/08/18 at 09:00 Insulin Aspart (Novolog Insulin Pen) 6 unit WITH MEALS SC Last administered on 09/08/18at 12:37; Admin Dose 6 UNIT; Start 09/08/18 at 08:00 Pantoprazole (Protonix Tab) 40 mg BID@06,18 PO Last administered on 09/08/18at 06:16; Admin Dose 40 MG; Start 09/08/18 at 06:00 Vancomycin HCl (Vanco Iv Per Pharmacy) VANCOMYCIN PER PHARMACY PER PROTOCOL XX ; Start 09/08/18 at 02:30 Cefepime HCl 50 ml @ 100 mls/hr Q12 IVPB Last administered on 09/08/18at 08:41; Admin Dose 100 MLS/HR; Start 09/08/18 at 09:00 Diagnostic Test (Pha) (Accu-Chek) 1 ea 02 XX ; Start 09/09/18 at 02:00 Insulin Aspart (Novolog Insulin Pen) NOVOLOG *MILD* ALGORITHM WITH MEALS BEDTIME SC Last administered on 09/08/18at 12:37; Admin Dose 2 UNIT; Start 09/08 at 08:00 Insulin Glargine (Lantus) 18 units DAILY@2000 SC ; Start 09/08/18 at 20:00 Miscellaneous Information (*Rx Drug Level Order Reminder*) VANCOMYCIN TROUGH LEVEL 0200 ONCE XX ; Start 09/09/18 at 02:00; Stop 09/09/18 at 02:01 Vancomycin HCl 250 ml @ 125 mls/hr Q8H IVPB Last administered on 09/08/18at 11:37; Admin Dose 125 MLS/HR; Start 09/08/18 at 11:00 Multivitamins/ Minerals (Theragran-M) 1 tab DAILY PO ; Start 09/09/18 at 09:00 Ascorbic Acid (Vitamin C) 500 mg BID PO ; Start 09/08/18 at 21:00 Meds reviewed: Yes Allergies Coded Allergies: No Known Allergy (Unverified , 01/04/18) Allergies Reviewed: Yes Labs/Studies Labs Reviewed: Reviewed by anesthesiologist Result Diagram: 09/08/18 0653 09/08/18 0653 Laboratory Tests 09/08/18 06:53 test: N/A Studies: ECG (n/a), CXR (n/a) Pre-procedure Exam Last vitals Vital Signs Date Temp Pulse Resp B/P (MAP) Pulse Ox O2 O2 Flow FiO2 Time Delivery Rate 09/08/18 97.8 87 18 147/61 99 07:52 (89) 09/08/18 Room Air 00:27 Airway: Adequate mouth opening, Adequate thyromental dist Mallampati: Mallampati II Teeth: Normal Lung: Normal Heart: Normal ASA Physical Status ASA physical status: 3 Emergency: E Planned Anesthetic General/MAC: ETT Neuraxial: Spinal Planned Pain Management Sub-arachniod narcotics, Parenteral pain med Pre-operative Attestations Prior to commencing anesthesia and surgery, the patient was re-evaluated, there was verification of: *The patient's identity *The results of appropriate recent lab work and preoperative vital signs *The above evaluation not changing prior to induction *Anesthetic plan, risk benefits, alternative and complications discussed with patient/family; questions answered; patient/family understands, accepts and wishes to proceed. LYLA FARMER MD Sep 08, 2018 16:52
[2018-09-08] MEDS ORDERED: FENTAnyl 50 MCG/ML VIAL ONE ×2 (17:23→17:52)
[2018-09-08] MEDS ORDERED: MIDAZOLAM 1 MG/ML 2 ML INJ ONE (17:23)
[2018-09-08] MEDS ORDERED: METOCLOPRAMIDE 10 MG INJ ONE (17:39)
[2018-09-08] MEDS ORDERED: ONDANSETRON 4 MG INJ ONE (17:39)
[2018-09-08] MEDS ORDERED: hydrALAzine 20 MG INJ ONE (17:51)
[2018-09-08] MEDS ORDERED: VANCOMYCIN 1 GM INJ ONE (18:08)
--- NOTE | 2018-09-08 18:32 | SIPON ---
Date/Time of Note Date/Time of Note DATE: 09/08/18 TIME: 18:32 Operative Report Preoperative Diagnosis Right foot diabetic ulcer Right foot cellulitis DM2 with peripheral neuropathy Charcot neuroarthropathy Right foot abscess Postoperative Diagnosis Right foot diabetic ulcer Right foot cellulitis DM2 with peripheral neuropathy Charcot neuroarthropathy Right foot abscess Operation/Procedure Performed right foot excisional debridement Right foot incision and drainage Surgeon see signature line activities assistant None Anesthesia: MAC Estimated blood loss: 10 - 50 ml's Transfusion Required none Specimen Right foot wound culture pre and post lavage Grafts/Implants none Complications none CARLOS SHEPPARD DPM Sep 08, 2018 18:32
--- NOTE | 2018-09-08 18:33 | OPR ---
Date/Time of Note Date/Time of Note DATE: 09/08/18 TIME: 18:33 Operative Report Preoperative Diagnosis Right foot diabetic ulcer Right foot cellulitis DM2 with peripheral neuropathy Charcot neuroarthropathy Right foot abscess Postoperative Diagnosis Right foot diabetic ulcer Right foot cellulitis DM2 with peripheral neuropathy Charcot neuroarthropathy Right foot abscess Operation/Procedure Performed right foot excisional debridement Right foot incision and drainage Surgeon see signature line Guest Relations Receptionist none Anesthesia Type: MAC Estimated Blood Loss: 10 - 50 ml's Transfusion none Specimen Right foot wound culture pre and post lavage Grafts/Implants none Complications none Indications 53 y/o diabetic M patient with hx of charcot neuroarthropathy. Patient developed a diabetic ulcer which worsened over time and developed an infection. Patient is amenable to surgical intervention. Addressed all of patient's questions and concerns. No promises or guarantees given. Procedure Description Patient was brought into the OR and placed in the supine position. Patient's right lower extremity was scrubbed, prepped, and draped in the usual aseptic manner. A formal time out was conducted. Attention was directed to the right foot. The lateral foot ulceration probed in a plantar fashion and communicated with the plantar ulceration site and an incision and drainage was performed and 2-3mL of purulence was expressed and drained from the incision site. Further purulence was also drained from the dorsal lateral aspect of the foot approximately 2-3mL as well. Pre-lavage wound cultures were obtained. The right dorsal lateral ulceration site which measured 3 x 3 x 3.5cm which communicated to the plantar incision and drainage site. The plantar foot ulceration site measure 5 x 3 x 1cm. Performed an excisional debridement of skin/subQ/muscle/fascia using rongeurs and pickup/scissors. Necrotic and fibrotic tissue was removed as well as purulent drainage. 12cm2 of area was debrided. Using pulse lavage copious antibiotic infused saline irrigation was used at both surgical sites. Post lavage wound cultures were obtained. Vancomycin antibiotic powder was placed into the surgical sites. 1/2in iodoform packing was placed into the wound sites as well as tunneling locations. Betadine 4x4 gauze, kerlix and christophe wraps were applied to the right foot Patient was transferred to PACU with vital signs stable and neurovascular status intact. CARLOS SHEPPARD DPM Sep 08, 2018 18:33
--- NOTE | 2018-09-08 18:45 | PAC ---
Date/Time of Note Date/Time of Note DATE: 09/08/18 TIME: 18:34 Post-Anesthesia Notes Post-Anesthesia Note Last documented vital signs Vital Signs Date Temp Pulse Resp B/P (MAP) Pulse Ox O2 O2 Flow FiO2 Time Delivery Rate 09/08/18 97.8 87 18 147/61 99 18:42 (89) 09/08/18 Room Air 00:27 Activity: WNL Respiratory function: WNL Cardiovascular function: WNL Mental status: Baseline Pain reasonably controlled: Yes Hydration appropriate: Yes Nausea/Vomiting absent: Yes LYLA FARMER MD Sep 08, 2018 18:45
[2018-09-08] MEDS ORDERED: INSULIN GLARGINE [LANTus] (100 UNITS/ML) SYG SC SCH (20:00)
[2018-09-08] MEDS ORDERED: NON-FORMULARY/PATIENT OWN MED ([Insulin Glargine] 18 UNITS) SC SCH (20:00)
[2018-09-08] MEDS: ASCORBIC ACID 500 MG TAB PO SCH (20:29)
[2018-09-08] MEDS ORDERED: hydrALAzine 20 MG INJ IV ONE (21:00)
[2018-09-09 02:03] VITALS: BP 142/65; PULSE 87; RESP 20
[2018-09-09] MEDS: ACCU-CHEK XX SCH (02:08)
[2018-09-09] MEDS: VANCOMYCIN 1 GM 250 ML IVPB SCH (03:16)
[2018-09-09] MEDS: PANTOPRAZOLE (EC) 40 MG TAB PO SCH ×2 (05:11→17:07)
--- NOTE | 2018-09-09 07:07 | CONS ---
DATE OF ADMISSION: 09/07/2018 DATE OF CONSULTATION: 09/08/2018 TYPE OF CONSULTATION: Infectious disease. REASON FOR CONSULTATION: Antibiotic management. HISTORY OF PRESENT ILLNESS: Ministerio Rodriguez is a 53-year-old male with numerous problems, who comes in with diabetic foot ulcer which reopened on 09/06/2018 at night. His past problems include: 1. Adult-onset diabetes mellitus. 2. Obesity. 3. Peripheral vascular disease. 4. Previous right Charcot foot osteomyelitis, status post right 3rd toe amputation. The patient presents with pain, redness, swelling and ulceration to the right foot for 1 day. He sta betty that the skin burst over the right lateral foot and has experienced some discharge from the right lateral foot as well as pain. He denies recent antibiotic therapy. He had fever. Denies cough, UR I symptoms, or any dysuria. PAST MEDICAL HISTORY: Includes sepsis due to right lower extremity cellulitis and osteomyelitis and right callus and calcaneus. He has a history of gastritis as well, history of anemia and as noted pr eviously, right 3rd toe amputation. The patient also has hypertension. FAMILY HISTORY: Noncontributory. SOCIAL HISTORY: He does not smoke. He does drink. He has no substance abuse. Dictated By: KRYSTAL JIMÉNEZ MD, JD/REGINE Conf#: [id number] DID#: [id number] CC: HUMA LACKEY MD; ELIANE RUSSELL MD;*End*
[2018-09-09 08:07] VITALS: BP 131/63; PULSE 70; RESP 18
[2018-09-09] MEDS: COLLAGENASE 5 GM (UD JAR) TOP SCH (08:17)
[2018-09-09] MEDS: MULTIVITAMINS/MINERALS TAB PO SCH (08:17)
[2018-09-09] MEDS: ASCORBIC ACID 500 MG TAB PO SCH ×2 (08:17→21:07)
[2018-09-09] MEDS: ASPIRIN (EC) 81 MG TAB PO SCH (08:18)
[2018-09-09] MEDS: CEFEPIME 1GM/50 ML (PMX) 50 ML IVPB SCH ×2 (08:18→22:10)
[2018-09-09] MEDS: DAKINS 0.0125%(1/40) 473 ML SOLUTION TP SCH (08:18)
[2018-09-09] MEDS: HEPARIN 5,000 UNIT/1 ML VIAL SC SCH ×2 (08:20→21:09)
[2018-09-09] MEDS: INSULIN ASPART [NOVOLOG] 3 ML PEN SC SCH ×7 (08:46→21:11)
--- NOTE | 2018-09-09 09:29 | CONS ---
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 MRI and non invasive arterial studies reviewed. Recommend vascular surgery consult. Intra op wound cultures pending. Abx per ID recommendations. Patient will benefit from PICC line abx for 6 weeks. Consultation Date/Type/Reason Admit Date/Time Sep 07, 2018 at 20:34 Initial Consult Date Date/Time of Note DATE: 09/09/18 TIME: 09:29 24 HR Interval Summary Free Text/Dictation No acute events overnight. Patient reports improved pain. Exam/Review of Systems Exam Vitals Vital Signs Date Temp Pulse Resp B/P (MAP) Pulse Ox O2 O2 Flow FiO2 Time Delivery Rate 09/09/18 98.2 70 18 131/63 98 08:07 (85) 09/08/18 Room Air 18:54 Intake and Output 09/08/18 09/08/18 09/09/18 1515:00 23:00 07:00 IntakeIntake Total 950 ml 950 ml 300 ml OutputOutput Total 10 ml BalanceBalance 950 ml 940 ml 300 ml Exam right dorsal lateral ulceration site which measured 3 x 3 x 3.5cm which communicated to the plantar incision Right plantar ulcer with surgical incision 5 x 3 x 3.5 which communicates with dorsal lateral ulceration Wound bases fibrogranular, no purulence appreciated Absent protective sensations Collapse of medial longitudinal arch Mild crepitus noted with midfoot and instability noted. Results Result Diagram: 09/09/18 0200 09/09/18 0200 Results 24hrs Laboratory Tests Test 09/08/18 12:34 09/08/18 17:10 09/08/18 17:35 09/08/18 19:38 Bedside Glucose 198 227 H 206 Erythrocyte 72 H Sedimentation Rate Procalcitonin 0.33 H Test 09/08/18 20:23 09/09/18 02:00 09/09/18 02:06 09/09/18 08:16 Bedside Glucose 223 H 216 199 White Blood Count 13.6 H Red Blood Count 4.10 L Hemoglobin 10.9 L Hematocrit 33.3 L Mean Corpuscular 81.2 L Volume Mean Corpuscular 26.6 L Hemoglobin Mean Corpuscular 32.7 Hemoglobin Concent Red Cell 13.4 Distribution Width Platelet Count 213 Mean Platelet Volume 10.2 Immature 0.900 H Granulocytes % Neutrophils % 77.2 H Lymphocytes % 10.8 L Monocytes % 9.7 Eosinophils % 1.1 Basophils % 0.3 Nucleated Red Blood 0.0 Cells % Immature 0.120 H Granulocytes # Neutrophils # 10.5 H Lymphocytes # 1.5 Monocytes # 1.3 H Eosinophils # 0.2 Basophils # 0.0 Nucleated Red Blood 0.0 Cells # Sodium Level 135 Potassium Level 3.7 Chloride Level 104 Carbon Dioxide Level 24 Anion Gap 7 Blood Urea Nitrogen 11 Creatinine 0.74 Est Glomerular > 60 Filtrat Rate mL/min Glucose Level 228 H Calcium Level 7.5 L Phosphorus Level 2.6 Magnesium Level 1.9 Vancomycin Level 10.8 Trough Medications Medication Current Medications Collagenase (Santyl) 1 applic DAILY TOP Last administered on 09/09/18at 08:17; Admin Dose 1 APPLIC; Start 09/08/18 at 09:00 Collagenase (Santyl) 1 applic PRN PRN TOP WHEN SOILED Last administered on 09/08/18at 01:55; Admin Dose 1 APPLIC; Start 09/08/18 at 02:00 IV Flush (NS 3 ml) 3 ml PER PROTOCOL IV ; Start 09/08/18 at 02:30 Ondansetron HCl (Zofran Inj) 4 mg Q6H PRN IV NAUSEA/VOMITING; Start 09/08/18 at 02:30 Acetaminophen (Tylenol Tab) 650 mg Q6H PRN PO .PAIN 1-3 OR TEMP; Start 09/08/18 at 02:30 Acetaminophen/ Hydrocodone Bitart ([place] (5/325)) 1 tab Q6H PRN PO .MOD PAIN 4- 6; Start 09/08/18 at 02:30 Acetaminophen/ Hydrocodone Bitart ([place] (5/325)) 2 tab Q6H PRN PO .SEVERE PAIN 7-10; Start 09/08/18 at 02:30 Heparin Sodium (Porcine) (Heparin (5000 Units/1ml)) 5,000 unit Q12 SC Last administered on 09/09/18at 08:20; Admin Dose 5,000 UNIT; Start 09/08/18 at 09:00 Albuterol/ Ipratropium (Duoneb) 3 ml Q2H RESP THERAPY PRN HHN SHORTNESS OF BREATH; Start 09/08/18 at 02:30 Aspirin (Halfprin) 81 mg DAILY PO Last administered on 09/09/18 08:18; Admin Dose 81 MG; Start 09/08/18 at 09:00 Insulin Aspart (Novolog Insulin Pen) 6 unit WITH MEALS SC Last administered on 09/09/18 08:46; Admin Dose 6 UNIT; Start 09/08/18 at 08:00 Pantoprazole (Protonix Tab) 40 mg BID@06,18 PO Last administered on 09/09/18 05:11; Admin Dose 40 MG; Start 09/08/18 at 06:00 Vancomycin HCl (Vanco Iv Per Pharmacy) VANCOMYCIN PER PHARMACY PER PROTOCOL XX ; Start 09/08/18 at 02:30 Cefepime HCl 50 ml @ 100 mls/hr Q12 IVPB Last administered on 09/09/18 08:18; Admin Dose 100 MLS/HR; Start 09/08/18 at 09:00 Diagnostic Test (Pha) (Accu-Chek) 1 ea 02 XX Last administered on 09/09/18 02:08; Admin Dose 1 EA; Start 09/09/18 at 02:00 Insulin Aspart (Novolog Insulin Pen) NOVOLOG *MILD* ALGORITHM WITH MEALS BEDTIME SC Last administered on 09/09/18 08:46; Admin Dose 2 UNIT; Start 09/08/18 at 08:00 Insulin Glargine (Lantus) 18 units DAILY@2000 SC Last administered on 09/08/18 20:26; Admin Dose 18 UNITS; Start 09/08/18 at 20:00 Multivitamins/ Minerals (Theragran-M) 1 tab DAILY PO Last administered on 09/09/18 08:17; Admin Dose 1 TAB; Start 09/09/18 at 09:00 Ascorbic Acid (Vitamin C) 500 mg BID PO Last administered on 09/09/18 08:17; Admin Dose 500 MG; Start 09/08/18 at 21:00 Sodium Hypochlorite (Dakins Diluted ()) 1 applic DAILY TP Last administered on 09/09/18 08:18; Admin Dose 1 APPLIC; Start 09/09/18 at 09:00 Miscellaneous Information (*Rx Drug Level Order Reminder*) VANCO TROUGH @ 1,000 1000 ONCE XX ; Start 09/10/18 at 10:00; Stop 09/10/18 at 10:01 Vancomycin HCl 1.25 gm/Sodium Chloride 250 ml @ 83.333 mls/ hr Q8H IVPB ; Start 09/09/18 at 11:00 CARLOS SHEPPARD DPM Sep 09, 2018 09:29
[2018-09-09] MEDS: VANCOMYCIN HCL 1.25 GM in SOD CHLORIDE 0.9% 250 ML IVPB SCH ×2 (11:24→18:22)
--- NOTE | 2018-09-09 14:32 | PN ---
Date/Time of Note Date/Time of Note DATE: 09/09/18 TIME: 14:23 Assessment/Plan VTE Prophylaxis Risk score (from Nsg)>0 risk: 3 SCD applied (from Nsg): Yes Pharmacological prophylaxis: heparin Lines/Catheters IV Catheter Type (from Nrsg): Peripheral IV Urinary Cath still in place: No Assessment/Plan Assessment/Plan 1. Right foot diabetic ulcer s/p debridement 09/08/18 - Podiatry on board and appreciate recommendations. Recommending Vasc Surgery consultation - ID on board and appreciate recommendations for antibiotic treatment - intraoperative cx pending - continue local wound care - MRI results noted - pain control 2. Diabetes mellitus with neuropathy - DM education consultation appreciated. Will increase Lantus dose and add Linagliptin. - A1c noted - discussed dietary modifications with patient. States has a friend who is a procurement officer and given him advice in the past - continue monitoring sugar and will adjust insulin for optimal control 3. Charcot neuroarthropathy - podiatry on board 4. Obesity - patient was to have gastric sleeve procedure in [place] but cancelled surgery after noticed changes to his right foot 5. 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 Disposition - Continue current treatment. Pending Vasc consultation - Awaiting intraoperative cultures and will most likely need 6 weeks of IV antibiotics. final antibiotic recommendations pending cx results. Will place PICC line prior to d/c Result Diagram: 09/09/18 0200 09/09/18 0200 Results 24hrs Laboratory Tests Test 09/08/18 17:10 09/08/18 17:35 09/08/18 19:38 09/08/18 20:23 Bedside Glucose 227 H 206 223 H Erythrocyte 72 H Sedimentation Rate Procalcitonin 0.33 H Test 09/09/18 02:00 09/09/18 02:06 09/09/18 08:16 09/09/18 12:18 White Blood Count 13.6 H Red Blood Count 4.10 L Hemoglobin 10.9 L Hematocrit 33.3 L Mean Corpuscular 81.2 L Volume Mean Corpuscular 26.6 L Hemoglobin Mean Corpuscular 32.7 Hemoglobin Concent Red Cell 13.4 Distribution Width Platelet Count 213 Mean Platelet Volume 10.2 Immature 0.900 H Granulocytes % Neutrophils % 77.2 H Lymphocytes % 10.8 L Monocytes % 9.7 Eosinophils % 1.1 Basophils % 0.3 Nucleated Red Blood 0.0 Cells % Immature 0.120 H Granulocytes # Neutrophils # 10.5 H Lymphocytes # 1.5 Monocytes # 1.3 H Eosinophils # 0.2 Basophils # 0.0 Nucleated Red Blood 0.0 Cells # Sodium Level 135 Potassium Level 3.7 Chloride Level 104 Carbon Dioxide Level 24 Anion Gap 7 Blood Urea Nitrogen 11 Creatinine 0.74 Est Glomerular > 60 Filtrat Rate mL/min Glucose Level 228 H Calcium Level 7.5 L Phosphorus Level 2.6 Magnesium Level 1.9 Vancomycin Level 10.8 Trough Bedside Glucose 216 199 214 Subjective 24 Hr Interval Summary Free Text/Dictation Patient states he's feeling okay and no acute overnight events. Tolerating PO intake. Discussed dietary changes and asking advice regarding having gastric sleeve surgery performed. Exam/Review of Systems Exam Vitals Vital Signs Date Temp Pulse Resp B/P (MAP) Pulse Ox O2 O2 Flow FiO2 Time Delivery Rate 09/09/18 98.2 70 18 131/63 98 08:07 (85) 09/08/18 Room Air 18:54 Intake and Output 09/08/18 09/08/18 09/09/18 1515:00 23:00 07:00 IntakeIntake Total 950 ml 950 ml 300 ml OutputOutput Total 10 ml BalanceBalance 950 ml 940 ml 300 ml Exam General: Patient is laying in bed and answers questions appropriately Neck: Supple, nontender, midline Respiratory: Clear to auscultation bilaterally. no wheezing or rhonchi Cardiovascular: regular rate and rhythm, no obvious murmurs Gastrointestinal: soft, nontender, nondistended, bowel sounds heard diffusely Ext: dressing on right foot with warmth appreciate above dressing Skin: dressing RLE CDI Results Results 24hrs Laboratory Tests Test 09/08/18 17:10 09/08/18 17:35 09/08/18 19:38 09/08/18 20:23 Bedside Glucose 227 H 206 223 H Erythrocyte 72 H Sedimentation Rate Procalcitonin 0.33 H Test 09/09/18 02:00 09/09/18 02:06 09/09/18 08:16 09/09/18 12:18 White Blood Count 13.6 H Red Blood Count 4.10 L Hemoglobin 10.9 L Hematocrit 33.3 L Mean Corpuscular 81.2 L Volume Mean Corpuscular 26.6 L Hemoglobin Mean Corpuscular 32.7 Hemoglobin Concent Red Cell 13.4 Distribution Width Platelet Count 213 Mean Platelet Volume 10.2 Immature 0.900 H Granulocytes % Neutrophils % 77.2 H Lymphocytes % 10.8 L Monocytes % 9.7 Eosinophils % 1.1 Basophils % 0.3 Nucleated Red Blood 0.0 Cells % Immature 0.120 H Granulocytes # Neutrophils # 10.5 H Lymphocytes # 1.5 Monocytes # 1.3 H Eosinophils # 0.2 Basophils # 0.0 Nucleated Red Blood 0.0 Cells # Sodium Level 135 Potassium Level 3.7 Chloride Level 104 Carbon Dioxide Level 24 Anion Gap 7 Blood Urea Nitrogen 11 Creatinine 0.74 Est Glomerular > 60 Filtrat Rate mL/min Glucose Level 228 H Calcium Level 7.5 L Phosphorus Level 2.6 Magnesium Level 1.9 Vancomycin Level 10.8 Trough Bedside Glucose 216 199 214 Medications Medication Current Medications Collagenase (Santyl) 1 applic DAILY TOP Last administered on 09/09/18at 08:17; Admin Dose 1 APPLIC; Start 09/08/18 at 09:00 Collagenase (Santyl) 1 applic PRN PRN TOP WHEN SOILED Last administered on 09/08/18at 01:55; Admin Dose 1 APPLIC; Start 09/08/18 at 02:00 IV Flush (NS 3 ml) 3 ml PER PROTOCOL IV ; Start 09/08/18 at 02:30 Ondansetron HCl (Zofran Inj) 4 mg Q6H PRN IV NAUSEA/VOMITING; Start 09/08/18 at 02:30 Acetaminophen (Tylenol Tab) 650 mg Q6H PRN PO .PAIN 1-3 OR TEMP; Start 09/08/18 at 02:30 Acetaminophen/ Hydrocodone Bitart ([place] (5/325)) 1 tab Q6H PRN PO .MOD PAIN 4- 6; Start 09/08/18 at 02:30 Acetaminophen/ Hydrocodone Bitart ([place] (5/325)) 2 tab Q6H PRN PO .SEVERE PAIN 7-10; Start 09/08/18 at 02:30 Heparin Sodium (Porcine) (Heparin (5000 Units/1ml)) 5,000 unit Q12 SC Last administered on 09/09/18at 08:20; Admin Dose 5,000 UNIT; Start 09/08/18 at 09:00 Albuterol/ Ipratropium (Duoneb) 3 ml Q2H RESP THERAPY PRN HHN SHORTNESS OF BREATH; Start 09/08/18 at 02:30 Aspirin (Halfprin) 81 mg DAILY PO Last administered on 09/09/18 08:18; Admin Dose 81 MG; Start 09/08/18 at 09:00 Insulin Aspart (Novolog Insulin Pen) 6 unit WITH MEALS SC Last administered on 09/09/18 12:41; Admin Dose 6 UNIT; Start 09/08/18 at 08:00 Pantoprazole (Protonix Tab) 40 mg BID@06,18 PO Last administered on 09/09/18 05:11; Admin Dose 40 MG; Start 09/08/18 at 06:00 Vancomycin HCl (Vanco Iv Per Pharmacy) VANCOMYCIN PER PHARMACY PER PROTOCOL XX ; Start 09/08/18 at 02:30 Cefepime HCl 50 ml @ 100 mls/hr Q12 IVPB Last administered on 09/09/18 08:18; Admin Dose 100 MLS/HR; Start 09/08/18 at 09:00 Diagnostic Test (Pha) (Accu-Chek) 1 ea 02 XX Last administered on 09/09/18 02:08; Admin Dose 1 EA; Start 09/09/18 at 02:00 Insulin Aspart (Novolog Insulin Pen) NOVOLOG *MILD* ALGORITHM WITH MEALS BEDTIME SC Last administered on 09/09/18 12:42; Admin Dose 2 UNIT; Start 09/08/18 at 08:00 Insulin Glargine (Lantus) 18 units DAILY@2000 SC Last administered on 09/08/18 20:26; Admin Dose 18 UNITS; Start 09/08/18 at 20:00 Multivitamins/ Minerals (Theragran-M) 1 tab DAILY PO Last administered on 09/09/18 08:17; Admin Dose 1 TAB; Start 09/09/18 at 09:00 Ascorbic Acid (Vitamin C) 500 mg BID PO Last administered on 09/09/18 08:17; Admin Dose 500 MG; Start 09/08/18 at 21:00 Sodium Hypochlorite (Dakins Diluted ()) 1 applic DAILY TP Last administered on 09/09/18 08:18; Admin Dose 1 APPLIC; Start 09/09/18 at 09:00 Miscellaneous Information (*Rx Drug Level Order Reminder*) VANCO TROUGH 6/ 25 @ 1,000 1000 ONCE XX ; Start 09/10/18 at 10:00; Stop 09/10/18 at 10:01 Vancomycin HCl 1.25 gm/Sodium Chloride 250 ml @ 83.333 mls/ hr Q8H IVPB Last administered on 09/09/18at 11:24; Admin Dose 83.333 MLS/HR; Start 09/09/18 at 11:00 STEPHANIE MARTINEZ MD Sep 09, 2018 14:32
[2018-09-09 14:49] VITALS: BP 141/64; PULSE 76; RESP 18
--- NOTE | 2018-09-09 16:16 | CONS ---
Assessment/Plan Assessment/Plan Hospital Course (Demo Recall) No acute changes overnight. Patient is sleeping looks comfortable no fevers overnight WBC 13.6 platelets 213 neutrophils 77.2 BUN 11 creatinine 0.74 Blood cultures have been negative right foot culture growing staph aureus preliminary Antimicrobials: Vancomycin Physical examination: Well-developed obese middle-aged man who is in no distress. Head atraumatic normocephalic neck is supple chest rise symmetrical breath sounds diminished bases heart: S1-S2 abdomen soft bowel sounds present extremities with right foot dressing intact Assessment: 1. Right foot cellulitis/osteomyelitis/abscess, status post I&D 2. Charcot neuroarthropathy 3. Diabetes 4. Obesity Plan: Patient is stable, continue antibiotics, wound care per podiatry, follow final cultures Consultation Date/Type/Reason Admit Date/Time Sep 07, 2018 at 20:34 Initial Consult Date Type of Consult id Date/Time of Note DATE: 09/09/18 TIME: 16:16 Exam/Review of Systems Exam Vitals Vital Signs Date Temp Pulse Resp B/P (MAP) Pulse Ox O2 O2 Flow FiO2 Time Delivery Rate 09/09/18 98.7 76 18 141/64 98 14:49 (89) 09/08/18 Room Air 18:54 Intake and Output 09/08/18 09/08/18 09/09/18 1515:00 23:00 07:00 IntakeIntake Total 950 ml 950 ml 300 ml OutputOutput Total 10 ml BalanceBalance 950 ml 940 ml 300 ml Results Result Diagram: 09/09/18 0200 09/09/18 0200 Results 24hrs Laboratory Tests Test 09/08/18 17:10 09/08/18 17:35 09/08/18 19:38 09/08/18 20:23 Bedside Glucose 227 H 206 223 H Erythrocyte 72 H Sedimentation Rate Procalcitonin 0.33 H Test 09/09/18 02:00 09/09/18 02:06 09/09/18 08:16 09/09/18 12:18 White Blood Count 13.6 H Red Blood Count 4.10 L Hemoglobin 10.9 L Hematocrit 33.3 L Mean Corpuscular 81.2 L Volume Mean Corpuscular 26.6 L Hemoglobin Mean Corpuscular 32.7 Hemoglobin Concent Red Cell 13.4 Distribution Width Platelet Count 213 Mean Platelet Volume 10.2 Immature 0.900 H Granulocytes % Neutrophils % 77.2 H Lymphocytes % 10.8 L Monocytes % 9.7 Eosinophils % 1.1 Basophils % 0.3 Nucleated Red Blood 0.0 Cells % Immature 0.120 H Granulocytes # Neutrophils # 10.5 H Lymphocytes # 1.5 Monocytes # 1.3 H Eosinophils # 0.2 Basophils # 0.0 Nucleated Red Blood 0.0 Cells # Sodium Level 135 Potassium Level 3.7 Chloride Level 104 Carbon Dioxide Level 24 Anion Gap 7 Blood Urea Nitrogen 11 Creatinine 0.74 Est Glomerular > 60 Filtrat Rate mL/min Glucose Level 228 H Calcium Level 7.5 L Phosphorus Level 2.6 Magnesium Level 1.9 Vancomycin Level 10.8 Trough Bedside Glucose 216 199 214 Medications Medication Current Medications Collagenase (Santyl) 1 applic DAILY TOP Last administered on 09/09/18at 08:17; Admin Dose 1 APPLIC; Start 09/08/18 at 09:00 Collagenase (Santyl) 1 applic PRN PRN TOP WHEN SOILED Last administered on 09/08/18at 01:55; Admin Dose 1 APPLIC; Start 09/08/18 at 02:00 IV Flush (NS 3 ml) 3 ml PER PROTOCOL IV ; Start 09/08/18 at 02:30 Ondansetron HCl (Zofran Inj) 4 mg Q6H PRN IV NAUSEA/VOMITING; Start 09/08/18 at 02:30 Acetaminophen (Tylenol Tab) 650 mg Q6H PRN PO .PAIN 1-3 OR TEMP; Start 09/08/18 at 02:30 Acetaminophen/ Hydrocodone Bitart ([place] (5/325)) 1 tab Q6H PRN PO .MOD PAIN 4- 6; Start 09/08/18 at 02:30 Acetaminophen/ Hydrocodone Bitart ([place] (5/325)) 2 tab Q6H PRN PO .SEVERE PAIN 7-10; Start 09/08/18 at 02:30 Heparin Sodium (Porcine) (Heparin (5000 Units/1ml)) 5,000 unit Q12 SC Last administered on 09/09/18at 08:20; Admin Dose 5,000 UNIT; Start 09/08/18 at 09:00 Albuterol/ Ipratropium (Duoneb) 3 ml Q2H RESP THERAPY PRN HHN SHORTNESS OF BREATH; Start 09/08/18 at 02:30 Aspirin (Halfprin) 81 mg DAILY PO Last administered on 09/09/18 08:18; Admin Dose 81 MG; Start 09/08/18 at 09:00 Insulin Aspart (Novolog Insulin Pen) 6 unit WITH MEALS SC Last administered on 09/09/18 12:41; Admin Dose 6 UNIT; Start 09/08/18 at 08:00 Pantoprazole (Protonix Tab) 40 mg BID@06,18 PO Last administered on 09/09/18 05:11; Admin Dose 40 MG; Start 09/08/18 at 06:00 Vancomycin HCl (Vanco Iv Per Pharmacy) VANCOMYCIN PER PHARMACY PER PROTOCOL XX ; Start 09/08/18 at 02:30 Cefepime HCl 50 ml @ 100 mls/hr Q12 IVPB Last administered on 09/09/18 08:18; Admin Dose 100 MLS/HR; Start 09/08/18 at 09:00 Diagnostic Test (Pha) (Accu-Chek) 1 ea 02 XX Last administered on 09/09/18 02:08; Admin Dose 1 EA; Start 09/09/18 at 02:00 Insulin Aspart (Novolog Insulin Pen) NOVOLOG *MILD* ALGORITHM WITH MEALS BEDTIME SC Last administered on 09/09/18 12:42; Admin Dose 2 UNIT; Start 09/08/18 at 08:00 Multivitamins/ Minerals (Theragran-M) 1 tab DAILY PO Last administered on 08:17; Admin Dose 1 TAB; Start 09/09/18 at 09:00 Ascorbic Acid (Vitamin C) 500 mg BID PO Last administered on 09/09/18 08:17; Admin Dose 500 MG; Start 09/08/18 at 21:00 Sodium Hypochlorite (Dakins Diluted ()) 1 applic DAILY TP Last administered on 09/09/18 08:18; Admin Dose 1 APPLIC; Start 09/09/18 at 09:00 Miscellaneous Information (*Rx Drug Level Order Reminder*) VANCO TROUGH @ 1,000 1000 ONCE XX ; Start 09/10/18 at 10:00; Stop 09/10/18 at 10:01 Vancomycin HCl 1.25 gm/Sodium Chloride 250 ml @ 83.333 mls/ hr Q8H IVPB Last administered on 09/09/18 11:24; Admin Dose 83.333 MLS/HR; Start 09/09/18 at 11:00 Insulin Glargine (Lantus) 26 units DAILY@2000 SC ; Start 09/09/18 at 20:00 Linagliptin (Tradjenta) 5 mg DAILY PO ; Start 09/10/18 at 09:00 MARY MCGEE NP Sep 09, 2018 16:16
[2018-09-09 20:33] VITALS: BP 150/73; PULSE 68; RESP 18
[2018-09-09] MEDS: INSULIN GLARGINE [LANTus] (100 UNITS/ML) SYG SC SCH (21:10)
[2018-09-10] MEDS: ACCU-CHEK XX SCH (01:43)
[2018-09-10 02:12] VITALS: BP 149/65; PULSE 71; RESP 18
[2018-09-10] MEDS: VANCOMYCIN HCL 1.25 GM in SOD CHLORIDE 0.9% 250 ML IVPB SCH (02:21)
[2018-09-10] MEDS: PANTOPRAZOLE (EC) 40 MG TAB PO SCH ×2 (06:20→17:08)
[2018-09-10 07:37] VITALS: BP 153/72; PULSE 75; RESP 18
[2018-09-10] MEDS: ASCORBIC ACID 500 MG TAB PO SCH ×2 (08:52→20:57)
[2018-09-10] MEDS: LINAGLIPTIN 5 MG TABLET PO SCH (08:52)
[2018-09-10] MEDS: ASPIRIN (EC) 81 MG TAB PO SCH (08:52)
[2018-09-10] MEDS: MULTIVITAMINS/MINERALS TAB PO SCH (08:52)
[2018-09-10] MEDS: COLLAGENASE 5 GM (UD JAR) TOP SCH (08:53)
[2018-09-10] MEDS: HEPARIN 5,000 UNIT/1 ML VIAL SC SCH ×2 (08:53→20:59)
[2018-09-10] MEDS: INSULIN ASPART [NOVOLOG] 3 ML PEN SC SCH ×7 (08:54→21:00)
[2018-09-10] MEDS: DAKINS 0.0125%(1/40) 473 ML SOLUTION TP SCH (08:56)
[2018-09-10] MEDS: CEFEPIME 1GM/50 ML (PMX) 50 ML IVPB SCH (08:56)
--- NOTE | 2018-09-10 10:44 | CONS ---
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 MRI and non invasive arterial studies reviewed. Recommend vascular surgery consult. Intra op wound cultures pending. Abx per ID recommendations. Patient will benefit from PICC line abx for 6 weeks. Recommend outpatient follow up with [facility] wound clinic [facility]. Consultation Date/Type/Reason Admit Date/Time Sep 07, 2018 at 20:34 Initial Consult Date Date/Time of Note DATE: 09/10/18 TIME: 10:44 24 HR Interval Summary Free Text/Dictation No acute events overnight. Exam/Review of Systems Exam Vitals Vital Signs Date Temp Pulse Resp B/P (MAP) Pulse Ox O2 O2 Flow FiO2 Time Delivery Rate 09/10/18 98.2 75 18 153/72 97 07:37 (99) 09/08/18 Room Air 18:54 Intake and Output 09/09/18 09/09/18 09/10/18 1515:00 23:00 07:00 IntakeIntake Total 300 ml 300 ml BalanceBalance 300 ml 300 ml Exam right dorsal lateral ulceration site which measured 3 x 3 x 3.5cm which communicated to the plantar incision Right plantar ulcer with surgical incision 5 x 3 x 3.5 which communicates with dorsal lateral ulceration Wound bases fibrogranular, no purulence appreciated Absent protective sensations Collapse of medial longitudinal arch Mild crepitus noted with midfoot and instability noted. Results Result Diagram: 09/10/18 0805 09/10/18 0805 Results 24hrs Laboratory Tests Test 09/09/18 12:18 09/09/18 17:08 09/09/18 21:06 09/10/18 02:19 Bedside Glucose 214 219 228 H 198 Test 09/10/18 08:05 09/10/18 08:27 White Blood Count 10.3 # Red Blood Count 4.14 L Hemoglobin 10.9 L Hematocrit 34.2 L Mean Corpuscular 82.6 Volume Mean Corpuscular 26.3 L Hemoglobin Mean Corpuscular 31.9 L Hemoglobin Concent Red Cell 13.4 Distribution Width Platelet Count 258 # Mean Platelet Volume 10.2 Immature 1.200 H Granulocytes % Neutrophils % Segmented 60 Neutrophils % (Manual) Band Neutrophils % 9 H (Manual) Lymphocytes % Lymphocytes % 18 (Manual) Monocytes % Monocytes % (Manual) 7 Eosinophils % Eosinophils % 4 (Manual) Basophils % Basophils % (Manual) 2 Nucleated Red Blood 0.0 Cells % Immature 0.120 H Granulocytes # Neutrophils # Neutrophils # 6.3 (Manual) Band Neutrophils # 0.9 H Lymphocytes (Manual) 1.8 Lymphocytes # Monocytes # Monocytes # (Manual) 0.7 Eosinophils # Basophils # Basophils # (Manual) 0.2 H Nucleated Red Blood Cells # Platelet Estimate NORMAL Polychromasia 1+ Anisocytosis 1+ Sodium Level 140 Potassium Level 3.9 Chloride Level 104 Carbon Dioxide Level 27 Anion Gap 9 Blood Urea Nitrogen 9 Creatinine 0.72 Glucose Level 216 Calcium Level 8.1 L Phosphorus Level 2.8 Magnesium Level 1.9 Albumin 2.8 L Bedside Glucose 214 Medications Medication Current Medications Collagenase (Santyl) 1 applic DAILY TOP Last administered on 09/10/18at 08:53; Admin Dose 1 APPLIC; Start 09/08/18 at 09:00 Collagenase (Santyl) 1 applic PRN PRN TOP WHEN SOILED Last administered on 09/08/18at 01:55; Admin Dose 1 APPLIC; Start 09/08/18 at 02:00 IV Flush (NS 3 ml) 3 ml PER PROTOCOL IV ; Start 09/08/18 at 02:30 Ondansetron HCl (Zofran Inj) 4 mg Q6H PRN IV NAUSEA/VOMITING; Start 09/08/18 at 02:30 Acetaminophen (Tylenol Tab) 650 mg Q6H PRN PO .PAIN 1-3 OR TEMP; Start 09/08/18 at 02:30 Acetaminophen/ Hydrocodone Bitart ([place] (5/325)) 1 tab Q6H PRN PO .MOD PAIN 4- 6; Start 09/08/18 at 02:30 Acetaminophen/ Hydrocodone Bitart ([place] (5/325)) 2 tab Q6H PRN PO .SEVERE PAIN 7-10; Start 09/08/18 at 02:30 Heparin Sodium (Porcine) (Heparin (5000 Units/1ml)) 5,000 unit Q12 SC Last administered on 09/10/18 08:53; Admin Dose 5,000 UNIT; Start 09/08/18 at 09:00 Albuterol/ Ipratropium (Duoneb) 3 ml Q2H RESP THERAPY PRN HHN SHORTNESS OF BREATH; Start 09/08/18 at 02:30 Aspirin (Halfprin) 81 mg DAILY PO Last administered on 09/10/18 08:52; Admin Dose 81 MG; Start 09/08/18 at 09:00 Insulin Aspart (Novolog Insulin Pen) 6 unit WITH MEALS SC Last administered on 09/10/18 08:54; Admin Dose 6 UNIT; Start 09/08/18 at 08:00 Pantoprazole (Protonix Tab) 40 mg BID@06,18 PO Last administered on 09/10/18 06:20; Admin Dose 40 MG; Start 09/08/18 at 06:00 Vancomycin HCl (Vanco Iv Per Pharmacy) VANCOMYCIN PER PHARMACY PER PROTOCOL XX ; Start 09/08/18 at 02:30 Cefepime HCl 50 ml @ 100 mls/hr Q12 IVPB Last administered on 09/10/18 08:56; Admin Dose 100 MLS/HR; Start 09/08/18 at 09:00 Diagnostic Test (Pha) (Accu-Chek) 1 ea 02 XX Last administered on 09/09/18 02:08; Admin Dose 1 EA; Start 09/09/18 at 02:00 Insulin Aspart (Novolog Insulin Pen) NOVOLOG *MILD* ALGORITHM WITH MEALS BEDTIME SC Last administered on 09/10/18 08:55; Admin Dose 2 UNIT; Start 09/08/18 at 08:00 Multivitamins/ Minerals (Theragran-M) 1 tab DAILY PO Last administered on 09/10/18 08:52; Admin Dose 1 TAB; Start 09/09/18 at 09:00 Ascorbic Acid (Vitamin C) 500 mg BID PO Last administered on 09/10/18 08:52; Admin Dose 500 MG; Start 09/08/18 at 21:00 Sodium Hypochlorite (Dakins Diluted ()) 1 applic DAILY TP Last administered on 09/10/18 08:56; Admin Dose 1 APPLIC; Start 09/09/18 at 09:00 Vancomycin HCl 1.25 gm/Sodium Chloride 250 ml @ 83.333 mls/ hr Q8H IVPB Last administered on 09/10/18 02:21; Admin Dose 83.333 MLS/HR; Start 09/09/18 at 11:00 Insulin Glargine (Lantus) 26 units DAILY@2000 SC Last administered on 09/09/18at 21:10; Admin Dose 26 UNITS; Start 09/09/18 at 20:00 Linagliptin (Tradjenta) 5 mg DAILY PO Last administered on 09/10/18at 08:52; Admin Dose 5 MG; Start 09/10/18 at 09:00 CARLOS SHEPPARD DPM Sep 10, 2018 10:44
[2018-09-10] MEDS: CEFTRIAXONE 1 GM/50 ML (PMX) 50 ML IVPB SCH (11:38)
[2018-09-10] MEDS ORDERED: LIDOCAINE 1% (MPF) 5 ML VIAL SC ONE (13:00)
[2018-09-10 14:00] VITALS: BP 150/68; PULSE 73; RESP 18
--- NOTE | 2018-09-10 14:05 | PN ---
Date/Time of Note Date/Time of Note DATE: 09/10/18 TIME: 13:55 Assessment/Plan VTE Prophylaxis Risk score (from Nsg)>0 risk: 3 SCD applied (from Nsg): Yes Pharmacological prophylaxis: heparin Lines/Catheters IV Catheter Type (from Nrsg): Peripheral IV Urinary Cath still in place: No Assessment/Plan Assessment/Plan 1. Right foot diabetic ulcer s/p debridement 09/08/18 - Podiatry on board and appreciate recommendations. Continue local wound care - Vascular surgery consultation placed given evidence of PAD on arterial studies - ID on board and appreciate recommendations for antibiotic treatment - MRI results noted - pain control 2. Diabetes mellitus with neuropathy - DM education consultation appreciated - will continue on Lantus/ ISS - A1c noted - continue monitoring sugar and will adjust insulin for optimal control 3. Charcot neuroarthropathy - podiatry on board 4. Obesity - patient was to have gastric sleeve procedure in [place] but cancelled surgery after noticed changes to his right foot 5. 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 PAD - Arterial studies noted with "Right lower extremity with significant stenosis in the right posterior tibial artery with monophasic waveforms elevated velocity. Dorsalis pedis artery unable to be evaluated due to overlying bandage" 7. Disposition - Vascular surgery consultation placed for evaluation of PAD - PICC line ordered Result Diagram: 09/10/18 0805 09/10/18 0805 Results 24hrs Laboratory Tests Test 09/09/18 17:08 09/09/18 21:06 09/10/18 02:19 09/10/18 08:05 Bedside Glucose 219 228 H 198 White Blood Count 10.3 # Red Blood Count 4.14 L Hemoglobin 10.9 L Hematocrit 34.2 L Mean Corpuscular 82.6 Volume Mean Corpuscular 26.3 L Hemoglobin Mean Corpuscular 31.9 L Hemoglobin Concent Red Cell 13.4 Distribution Width Platelet Count 258 # Mean Platelet Volume 10.2 Immature 1.200 H Granulocytes % Neutrophils % Segmented 60 Neutrophils % (Manual) Band Neutrophils % 9 H (Manual) Lymphocytes % Lymphocytes % 18 (Manual) Monocytes % Monocytes % (Manual) 7 Eosinophils % Eosinophils % 4 (Manual) Basophils % Basophils % (Manual) 2 Nucleated Red Blood 0.0 Cells % Immature 0.120 H Granulocytes # Neutrophils # Neutrophils # 6.3 (Manual) Band Neutrophils # 0.9 H Lymphocytes (Manual) 1.8 Lymphocytes # Monocytes # Monocytes # (Manual) 0.7 Eosinophils # Basophils # Basophils # (Manual) 0.2 H Nucleated Red Blood Cells # Platelet Estimate NORMAL Polychromasia 1+ Anisocytosis 1+ Sodium Level 140 Potassium Level 3.9 Chloride Level 104 Carbon Dioxide Level 27 Anion Gap 9 Blood Urea Nitrogen 9 Creatinine 0.72 Glucose Level 216 Calcium Level 8.1 L Phosphorus Level 2.8 Magnesium Level 1.9 Albumin 2.8 L Test 09/10/18 08:27 09/10/18 10:00 09/10/18 12:33 Bedside Glucose 214 180 Erythrocyte 95 H Sedimentation Rate C-Reactive Protein 20.2 H Procalcitonin 0.19 H Vancomycin Level 13.7 Trough Subjective 24 Hr Interval Summary Free Text/Dictation Patient states hes doing well and denies any pain. No acute overnight events. Exam/Review of Systems Exam Vitals Vital Signs Date Temp Pulse Resp B/P (MAP) Pulse Ox O2 O2 Flow FiO2 Time Delivery Rate 09/10/18 98.2 75 18 153/72 97 07:37 (99) 09/08/18 Room Air 18:54 Intake and Output 09/09/18 09/09/18 09/10/18 1515:00 23:00 07:00 IntakeIntake Total 300 ml 300 ml BalanceBalance 300 ml 300 ml Exam General: Patient is sitting up in bed and answers questions appropriately Neck: Supple Respiratory: Clear to auscultation bilaterally. no wheezing or rhonchi Cardiovascular: regular rate and rhythm, no obvious murmurs Gastrointestinal: soft, nontender, nondistended, bowel sounds heard diffusely Skin: dressing RLE CDI Results Results 24hrs Laboratory Tests Test 09/09/18 17:08 09/09/18 21:06 09/10/18 02:19 09/10/18 08:05 Bedside Glucose 219 228 H 198 White Blood Count 10.3 # Red Blood Count 4.14 L Hemoglobin 10.9 L Hematocrit 34.2 L Mean Corpuscular 82.6 Volume Mean Corpuscular 26.3 L Hemoglobin Mean Corpuscular 31.9 L Hemoglobin Concent Red Cell 13.4 Distribution Width Platelet Count 258 # Mean Platelet Volume 10.2 Immature 1.200 H Granulocytes % Neutrophils % Segmented 60 Neutrophils % (Manual) Band Neutrophils % 9 H (Manual) Lymphocytes % Lymphocytes % 18 (Manual) Monocytes % Monocytes % (Manual) 7 Eosinophils % Eosinophils % 4 (Manual) Basophils % Basophils % (Manual) 2 Nucleated Red Blood 0.0 Cells % Immature 0.120 H Granulocytes # Neutrophils # Neutrophils # 6.3 (Manual) Band Neutrophils # 0.9 H Lymphocytes (Manual) 1.8 Lymphocytes # Monocytes # Monocytes # (Manual) 0.7 Eosinophils # Basophils # Basophils # (Manual) 0.2 H Nucleated Red Blood Cells # Platelet Estimate NORMAL Polychromasia 1+ Anisocytosis 1+ Sodium Level 140 Potassium Level 3.9 Chloride Level 104 Carbon Dioxide Level 27 Anion Gap 9 Blood Urea Nitrogen 9 Creatinine 0.72 Glucose Level 216 Calcium Level 8.1 L Phosphorus Level 2.8 Magnesium Level 1.9 Albumin 2.8 L Test 09/10/18 08:27 09/10/18 10:00 09/10/18 12:33 Bedside Glucose 214 180 Erythrocyte 95 H Sedimentation Rate C-Reactive Protein 20.2 H Procalcitonin 0.19 H Vancomycin Level 13.7 Trough Medications Medication Current Medications Collagenase (Santyl) 1 applic DAILY TOP Last administered on 09/10/18at 08:53; Admin Dose 1 APPLIC; Start 09/08/18 at 09:00 Collagenase (Santyl) 1 applic PRN PRN TOP WHEN SOILED Last administered on 09/08/18at 01:55; Admin Dose 1 APPLIC; Start 09/08/18 at 02:00 IV Flush (NS 3 ml) 3 ml PER PROTOCOL IV ; Start 09/08/18 at 02:30 Ondansetron HCl (Zofran Inj) 4 mg Q6H PRN IV NAUSEA/VOMITING; Start 09/08/18 at 02:30 Acetaminophen (Tylenol Tab) 650 mg Q6H PRN PO .PAIN 1-3 OR TEMP; Start 09/08/18 at 02:30 Acetaminophen/ Hydrocodone Bitart ([place] (5/325)) 1 tab Q6H PRN PO .MOD PAIN 4- 6; Start 09/08/18 at 02:30 Acetaminophen/ Hydrocodone Bitart ([place] (5/325)) 2 tab Q6H PRN PO .SEVERE PAIN 7-10; Start 09/08/18 at 02:30 Heparin Sodium (Porcine) (Heparin (5000 Units/1ml)) 5,000 unit Q12 SC Last administered on 09/10/18at 08:53; Admin Dose 5,000 UNIT; Start 09/08/18 at 09:00 Albuterol/ Ipratropium (Duoneb) 3 ml Q2H RESP THERAPY PRN HHN SHORTNESS OF BREATH; Start 09/08/18 at 02:30 Aspirin (Halfprin) 81 mg DAILY PO Last administered on 09/10/18 08:52; Admin Dose 81 MG; Start 09/08/18 at 09:00 Insulin Aspart (Novolog Insulin Pen) 6 unit WITH MEALS SC Last administered on 09/10/18 12:40; Admin Dose 6 UNIT; Start 09/08/18 at 08:00 Pantoprazole (Protonix Tab) 40 mg BID@06,18 PO Last administered on 09/10/18 06:20; Admin Dose 40 MG; Start 09/08/18 at 06:00 Diagnostic Test (Pha) (Accu-Chek) 1 ea 02 XX Last administered on 09/09/18 02:08; Admin Dose 1 EA; Start 09/09/18 at 02:00 Insulin Aspart (Novolog Insulin Pen) NOVOLOG *MILD* ALGORITHM WITH MEALS BEDT KARLA SC Last administered on 09/10/18 12:41; Admin Dose 1 UNIT; Start 09/08/18 at 08:00 Multivitamins/ Minerals (Theragran-M) 1 tab DAILY PO Last administered on 09/10/18 08:52; Admin Dose 1 TAB; Start 09/09/18 at 09:00 Ascorbic Acid (Vitamin C) 500 mg BID PO Last administered on 09/10/18 08:52; Admin Dose 500 MG; Start 09/08/18 at 21:00 Sodium Hypochlorite (Dakins Diluted ()) 1 applic DAILY TP Last administered on 09/10/18 08:56; Admin Dose 1 APPLIC; Start 09/09/18 at 09:00 Insulin Glargine (Lantus) 26 units DAILY@2000 SC Last administered on 09/09/18 21:10; Admin Dose 26 UNITS; Start 09/09/18 at 20:00 Linagliptin (Tradjenta) 5 mg DAILY PO Last administered on 09/10/18 08:52; Admin Dose 5 MG; Start 09/10/18 at 09:00 Ceftriaxone Sodium 50 ml @ 100 mls/hr Q24H IVPB Last administered on 6/25/19at 11:38; Admin Dose 100 MLS/HR; Start 09/10/18 at 11:30 STEPHANIE MARTINEZ MD Sep 10, 2018 14:05
--- NOTE | 2018-09-10 15:32 | CONS ---
Assessment/Plan Assessment/Plan Hospital Course (Demo Recall) Alert feels good no fevers overnight Blood cultures have been negative right foot culture growing MSSA Antimicrobials: Rocephin Physical examination: Well-developed obese middle-aged man who is in no distress. Head atraumatic normocephalic neck is supple chest rise symmetrical breath sounds diminished bases heart: S1-S2 abdomen soft bowel sounds present extremities with right foot dressing intact Assessment: 1. Right foot cellulitis/osteomyelitis/abscess, status post I&D 2. Charcot neuroarthropathy 3. Diabetes 4. Obesity Plan: Patient is stable, consider PICC for 6 weeks IV abx, wound care per podiatry Consultation Date/Type/Reason Admit Date/Time Sep 07, 2018 at 20:34 Initial Consult Date Type of Consult id Date/Time of Note DATE: 09/10/18 TIME: 15:26 Exam/Review of Systems Exam Vitals Vital Signs Date Temp Pulse Resp B/P (MAP) Pulse Ox O2 O2 Flow FiO2 Time Delivery Rate 09/10/18 98.5 73 18 150/68 97 14:00 (95) 09/08/18 Room Air 18:54 Intake and Output 09/09/18 09/09/18 09/10/18 1515:00 23:00 07:00 IntakeIntake Total 300 ml 300 ml BalanceBalance 300 ml 300 ml Results Result Diagram: 09/10/18 0805 09/10/18 0805 Results 24hrs Laboratory Tests Test 09/09/18 17:08 09/09/18 21:06 09/10/18 02:19 09/10/18 08:05 Bedside Glucose 219 228 H 198 White Blood Count 10.3 # Red Blood Count 4.14 L Hemoglobin 10.9 L Hematocrit 34.2 L Mean Corpuscular 82.6 Volume Mean Corpuscular 26.3 L Hemoglobin Mean Corpuscular 31.9 L Hemoglobin Concent Red Cell 13.4 Distribution Width Platelet Count 258 # Mean Platelet Volume 10.2 Immature 1.200 H Granulocytes % Neutrophils % Segmented 60 Neutrophils % (Manual) Band Neutrophils % 9 H (Manual) Lymphocytes % Lymphocytes % 18 (Manual) Monocytes % Monocytes % (Manual) 7 Eosinophils % Eosinophils % 4 (Manual) Basophils % Basophils % (Manual) 2 Nucleated Red Blood 0.0 Cells % Immature 0.120 H Granulocytes # Neutrophils # Neutrophils # 6.3 (Manual) Band Neutrophils # 0.9 H Lymphocytes (Manual) 1.8 Lymphocytes # Monocytes # Monocytes # (Manual) 0.7 Eosinophils # Basophils # Basophils # (Manual) 0.2 H Nucleated Red Blood Cells # Platelet Estimate NORMAL Polychromasia 1+ Anisocytosis 1+ Sodium Level 140 Potassium Level 3.9 Chloride Level 104 Carbon Dioxide Level 27 Anion Gap 9 Blood Urea Nitrogen 9 Creatinine 0.72 Glucose Level 216 Calcium Level 8.1 L Phosphorus Level 2.8 Magnesium Level 1.9 Albumin 2.8 L Test 09/10/18 08:27 09/10/18 10:00 09/10/18 12:33 Bedside Glucose 214 180 Erythrocyte 95 H Sedimentation Rate C-Reactive Protein 20.2 H Procalcitonin 0.19 H Vancomycin Level 13.7 Trough Medications Medication Current Medications Collagenase (Santyl) 1 applic DAILY TOP Last administered on 09/10/18at 08:53; Admin Dose 1 APPLIC; Start 09/08/18 at 09:00 Collagenase (Santyl) 1 applic PRN PRN TOP WHEN SOILED Last administered on 09/08/18at 01:55; Admin Dose 1 APPLIC; Start 09/08/18 at 02:00 IV Flush (NS 3 ml) 3 ml PER PROTOCOL IV ; Start 09/08/18 at 02:30 Ondansetron HCl (Zofran Inj) 4 mg Q6H PRN IV NAUSEA/VOMITING; Start 09/08/18 at 02:30 Acetaminophen (Tylenol Tab) 650 mg Q6H PRN PO .PAIN 1-3 OR TEMP; Start 09/08/18 at 02:30 Acetaminophen/ Hydrocodone Bitart ([place] (5/325)) 1 tab Q6H PRN PO .MOD PAIN 4- 6; Start 09/08/18 at 02:30 Acetaminophen/ Hydrocodone Bitart ([place] (5/325)) 2 tab Q6H PRN PO .SEVERE PAIN 7-10; Start 09/08/18 at 02:30 Heparin Sodium (Porcine) (Heparin (5000 Units/1ml)) 5,000 unit Q12 SC Last administered on 09/10/18at 08:53; Admin Dose 5,000 UNIT; Start 09/08/18 at 09:00 Albuterol/ Ipratropium (Duoneb) 3 ml Q2H RESP THERAPY PRN HHN SHORTNESS OF BREATH; Start 09/08/18 at 02:30 Aspirin (Halfprin) 81 mg DAILY PO Last administered on 09/10/18 08:52; Admin Dose 81 MG; Start 09/08/18 at 09:00 Insulin Aspart (Novolog Insulin Pen) 6 unit WITH MEALS SC Last administered on 09/10/18 12:40; Admin Dose 6 UNIT; Start 09/08/18 at 08:00 Pantoprazole (Protonix Tab) 40 mg BID@06,18 PO Last administered on 09/10/18 06:20; Admin Dose 40 MG; Start 09/08/18 at 06:00 Diagnostic Test (Pha) (Accu-Chek) 1 ea 02 XX Last administered on 09/09/18 02:08; Admin Dose 1 EA; Start 09/09/18 at 02:00 Insulin Aspart (Novolog Insulin Pen) NOVOLOG *MILD* ALGORITHM WITH MEALS BEDTIME SC Last administered on 09/10/18 12:41; Admin Dose 1 UNIT; Start 09/08/18 at 08:00 Multivitamins/ Minerals (Theragran-M) 1 tab DAILY PO Last administered on 09/10/18 08:52; Admin Dose 1 TAB; Start 09/09/18 at 09:00 Ascorbic Acid (Vitamin C) 500 mg BID PO Last administered on 09/10/18 08:52; Admin Dose 500 MG; Start 09/08/18 at 21:00 Sodium Hypochlorite (Dakins Diluted ()) 1 applic DAILY TP Last administered on 09/10/18 08:56; Admin Dose 1 APPLIC; Start 09/09/18 at 09:00 Insulin Glargine (Lantus) 26 units DAILY@2000 SC Last administered on 09/09/18 21:10; Admin Dose 26 UNITS; Start 09/09/18 at 20:00 Linagliptin (Tradjenta) 5 mg DAILY PO Last administered on 09/10/18 08:52; Admin Dose 5 MG; Start 09/10/18 at 09:00 Ceftriaxone Sodium 50 ml @ 100 mls/hr Q24H IVPB Last administered on 09/10/18 11:38; Admin Dose 100 MLS/HR; Start 09/10/18 at 11:30 MARY MCGEE NP Sep 10, 2018 15:32
[2018-09-10 20:00] VITALS: BP 147/56; PULSE 63; RESP 17
[2018-09-10] MEDS: INSULIN GLARGINE [LANTus] (100 UNITS/ML) SYG SC SCH (20:59)
[2018-09-11 02:00] VITALS: BP 145/61; PULSE 71; RESP 18
[2018-09-11] MEDS: ACCU-CHEK XX SCH (02:00)
[2018-09-11] MEDS: PANTOPRAZOLE (EC) 40 MG TAB PO SCH ×2 (05:40→17:06)
[2018-09-11 07:39] VITALS: BP 155/65; PULSE 69; RESP 18
[2018-09-11] MEDS: MULTIVITAMINS/MINERALS TAB PO SCH (08:03)
[2018-09-11] MEDS: COLLAGENASE 5 GM (UD JAR) TOP SCH (08:03)
[2018-09-11] MEDS: LINAGLIPTIN 5 MG TABLET PO SCH (08:03)
[2018-09-11] MEDS: ASPIRIN (EC) 81 MG TAB PO SCH (08:03)
[2018-09-11] MEDS: ASCORBIC ACID 500 MG TAB PO SCH ×2 (08:03→21:16)
[2018-09-11] MEDS: HEPARIN 5,000 UNIT/1 ML VIAL SC SCH ×2 (08:04→21:17)
[2018-09-11] MEDS: INSULIN ASPART [NOVOLOG] 3 ML PEN SC SCH ×7 (08:04→21:00)
[2018-09-11] MEDS: DAKINS 0.0125%(1/40) 473 ML SOLUTION TP SCH (08:05)
[2018-09-11] MEDS: CEFTRIAXONE 1 GM/50 ML (PMX) 50 ML IVPB SCH (11:47)
--- NOTE | 2018-09-11 12:26 | CONS ---
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 Patient to remain non weight bearing to right foot. Physical therapy to assess ability for offloading. Recommend CAM boot with well padded dressings. MRI and non invasive arterial studies reviewed. Recommend vascular surgery consult. Intra op wound cultures showing staph aureus. Patient received PICC line access for abx. Outpatient follow up with [facility] wound clinic [facility]. Consultation Date/Type/Reason Admit Date/Time Sep 07, 2018 at 20:34 Initial Consult Date Date/Time of Note DATE: 09/11/18 TIME: 12:25 24 HR Interval Summary Free Text/Dictation No acute events overnight. Exam/Review of Systems Exam Vitals Vital Signs Date Temp Pulse Resp B/P (MAP) Pulse Ox O2 O2 Flow FiO2 Time Delivery Rate 09/11/18 97.7 69 18 155/65 98 Room Air 07:39 (95) Intake and Output 09/10/18 09/10/18 09/11/18 1515:00 23:00 07:00 IntakeIntake Total 1320 ml 200 ml BalanceBalance 1320 ml 200 ml Exam right dorsal lateral ulceration site which measured 3 x 3 x 3.5cm which communicated to the plantar incision Right plantar ulcer with surgical incision 5 x 3 x 3.5 which communicates with dorsal lateral ulceration Wound bases fibrogranular, no purulence appreciated Absent protective sensations Collapse of medial longitudinal arch Mild crepitus noted with midfoot and instability noted. Results Result Diagram: 09/11/18 0716 09/11/18 0716 Results 24hrs Laboratory Tests Test 09/10/18 12:33 09/10/18 17:03 09/10/18 20:57 09/11/18 07:15 Bedside Glucose 180 147 128 C-Reactive Protein 15.3 H Test 09/11/18 07:16 09/11/18 07:58 09/11/18 11:51 White Blood Count 9.3 Red Blood Count 4.00 L Hemoglobin 10.7 L Hematocrit 32.9 L Mean Corpuscular 82.3 Volume Mean Corpuscular 26.8 L Hemoglobin Mean Corpuscular 32.5 Hemoglobin Concent Red Cell 13.6 Distribution Width Platelet Count 284 Mean Platelet Volume 10.3 Immature 1.300 H Granulocytes % Neutrophils % 60.1 Lymphocytes % 23.7 Monocytes % 9.1 Eosinophils % 5.3 Basophils % 0.5 Nucleated Red Blood 0.0 Cells % Immature 0.120 H Granulocytes # Neutrophils # 5.6 Lymphocytes # 2.2 Monocytes # 0.8 Eosinophils # 0.5 Basophils # 0.1 Nucleated Red Blood 0.0 Cells # Erythrocyte 106 H Sedimentation Rate Sodium Level 141 Potassium Level 3.5 Chloride Level 105 Carbon Dioxide Level 28 Anion Gap 8 Blood Urea Nitrogen 7 Creatinine 0.72 Glucose Level 156 Calcium Level 8.0 L Phosphorus Level 4.3 Magnesium Level 2.1 Albumin 2.9 L Bedside Glucose 156 130 Medications Medication Current Medications Collagenase (Santyl) 1 applic DAILY TOP Last administered on 09/11/18at 08:03; Admin Dose 1 APPLIC; Start 09/08/18 at 09:00 Collagenase (Santyl) 1 applic PRN PRN TOP WHEN SOILED Last administered on 09/08/18at 01:55; Admin Dose 1 APPLIC; Start 09/08/18 at 02:00 IV Flush (NS 3 ml) 3 ml PER PROTOCOL IV ; Start 09/08/18 at 02:30 Ondansetron HCl (Zofran Inj) 4 mg Q6H PRN IV NAUSEA/VOMITING; Start 09/08/18 at 02:30 Acetaminophen (Tylenol Tab) 650 mg Q6H PRN PO .PAIN 1-3 OR TEMP; Start 09/08/18 at 02:30 Acetaminophen/ Hydrocodone Bitart ([place] (5/325)) 1 tab Q6H PRN PO .MOD PAIN 4- 6; Start 09/08/18 at 02:30 Acetaminophen/ Hydrocodone Bitart ([place] (5/325)) 2 tab Q6H PRN PO .SEVERE PAIN 7-10; Start 09/08/18 at 02:30 Heparin Sodium (Porcine) (Heparin (5000 Units/1ml)) 5,000 unit Q12 SC Last administered on 09/11/18at 08:04; Admin Dose 5,000 UNIT; Start 09/08/18 at 09:00 Albuterol/ Ipratropium (Duoneb) 3 ml Q2H RESP THERAPY PRN HHN SHORTNESS OF BREATH; Start 09/08/18 at 02:30 Aspirin (Halfprin) 81 mg DAILY PO Last administered on 09/11/18 08:03; Admin Dose 81 MG; Start 09/08/18 at 09:00 Insulin Aspart (Novolog Insulin Pen) 6 unit WITH MEALS SC Last administered on 09/11/18 11:55; Admin Dose 6 UNIT; Start 09/08/18 at 08:00 Pantoprazole (Protonix Tab) 40 mg BID@06,18 PO Last administered on 09/11/18 05:40; Admin Dose 40 MG; Start 09/08/18 at 06:00 Diagnostic Test (Pha) (Accu-Chek) 1 ea 02 XX Last administered on 09/09/18 02:08; Admin Dose 1 EA; Start 09/09/18 at 02:00 Insulin Aspart (Novolog Insulin Pen) NOVOLOG *MILD* ALGORITHM WITH MEALS BEDTIME SC Last administered on 09/11/18 08:05; Admin Dose 1 UNIT; Start 09/08/18 at 08:00 Multivitamins/ Minerals (Theragran-M) 1 tab DAILY PO Last administered on 09/11/18 08:03; Admin Dose 1 TAB; Start 09/09/18 at 09:00 Ascorbic Acid (Vitamin C) 500 mg BID PO Last administered on 09/11/18 08:03; Admin Dose 500 MG; Start 09/08/18 at 21:00 Sodium Hypochlorite (Dakins Diluted ()) 1 applic DAILY TP Last administered on 09/11/18 08:05; Admin Dose 1 APPLIC; Start 09/09/18 at 09:00 Insulin Glargine (Lantus) 26 units DAILY@2000 SC Last administered on 09/10/18 20:59; Admin Dose 26 UNITS; Start 09/09/18 at 20:00 Linagliptin (Tradjenta) 5 mg DAILY PO Last administered on 09/11/18 08:03; Admin Dose 5 MG; Start 09/10/18 at 09:00 Ceftriaxone Sodium 50 ml @ 100 mls/hr Q24H IVPB Last administered on 09/11/18 11:47; Admin Dose 100 MLS/HR; Start 09/10/18 at 11:30 CARLOS SHEPPARD DPM Sep 11, 2018 12:26
[2018-09-11 13:58] VITALS: BP 176/84; PULSE 72; RESP 18
[2018-09-11] MEDS ORDERED: LISINOPRIL 5 MG TAB PO SCH (14:30)
--- NOTE | 2018-09-11 14:55 | CONS ---
Assessment/Plan Assessment/Plan Hospital Course (Demo Recall) No acute events overnight patient looks comfortable, no fevers Blood cultures have been negative right foot culture growing MSSA Antimicrobials: Rocephin Physical examination: Well-developed obese middle-aged man who is in no distress. Head atraumatic normocephalic neck is supple chest rise symmetrical breath sounds diminished bases heart: S1-S2 abdomen soft bowel sounds present extremities with right foot dressing intact Assessment: 1. Right foot cellulitis/osteomyelitis/abscess, status post I&D 2. Charcot neuroarthropathy 3. Diabetes 4. Obesity Plan: Patient is stable, consider PICC line, recommend discharge on IV Rocephin to complete 6 weeks, would refrain from oral Cipro or Levaquin as staph aureus frequently develops resistance to them Consultation Date/Type/Reason Admit Date/Time Sep 07, 2018 at 20:34 Initial Consult Date Type of Consult id Date/Time of Note DATE: 09/11/18 TIME: 14:54 Exam/Review of Systems Exam Vitals Vital Signs Date Temp Pulse Resp B/P (MAP) Pulse Ox O2 O2 Flow FiO2 Time Delivery Rate 09/11/18 98.5 72 18 176/84 98 Room Air 13:58 (114) Intake and Output 09/10/18 09/10/18 09/11/18 1515:00 23:00 07:00 IntakeIntake Total 1320 ml 200 ml BalanceBalance 1320 ml 200 ml Results Result Diagram: 09/11/18 0716 09/11/18 0716 Results 24hrs Laboratory Tests Test 09/10/18 17:03 09/10/18 20:57 09/11/18 07:15 09/11/18 07:16 Bedside Glucose 147 128 C-Reactive Protein 15.3 H Procalcitonin 0.13 H White Blood Count 9.3 Red Blood Count 4.00 L Hemoglobin 10.7 L Hematocrit 32.9 L Mean Corpuscular 82.3 Volume Mean Corpuscular 26.8 L Hemoglobin Mean Corpuscular 32.5 Hemoglobin Concent Red Cell 13.6 Distribution Width Platelet Count 284 Mean Platelet Volume 10.3 Immature 1.300 H Granulocytes % Neutrophils % 60.1 Lymphocytes % 23.7 Monocytes % 9.1 Eosinophils % 5.3 Basophils % 0.5 Nucleated Red Blood 0.0 Cells % Immature 0.120 H Granulocytes # Neutrophils # 5.6 Lymphocytes # 2.2 Monocytes # 0.8 Eosinophils # 0.5 Basophils # 0.1 Nucleated Red Blood 0.0 Cells # Erythrocyte 106 H Sedimentation Rate Sodium Level 141 Potassium Level 3.5 Chloride Level 105 Carbon Dioxide Level 28 Anion Gap 8 Blood Urea Nitrogen 7 Creatinine 0.72 Glucose Level 156 Calcium Level 8.0 L Phosphorus Level 4.3 Magnesium Level 2.1 Albumin 2.9 L Test 09/11/18 07:58 09/11/18 11:51 Bedside Glucose 156 130 Medications Medication Current Medications Collagenase (Santyl) 1 applic DAILY TOP Last administered on 09/11/18at 08:03; Admin Dose 1 APPLIC; Start 09/08/18 at 09:00 Collagenase (Santyl) 1 applic PRN PRN TOP WHEN SOILED Last administered on 09/08/18at 01:55; Admin Dose 1 APPLIC; Start 09/08/18 at 02:00 IV Flush (NS 3 ml) 3 ml PER PROTOCOL IV ; Start 09/08/18 at 02:30 Ondansetron HCl (Zofran Inj) 4 mg Q6H PRN IV NAUSEA/VOMITING; Start 09/08/18 at 02:30 Acetaminophen (Tylenol Tab) 650 mg Q6H PRN PO .PAIN 1-3 OR TEMP; Start 09/08/18 at 02:30 Acetaminophen/ Hydrocodone Bitart ([place] (5/325)) 1 tab Q6H PRN PO .MOD PAIN 4- 6; Start 09/08/18 at 02:30 Acetaminophen/ Hydrocodone Bitart ([place] (5/325)) 2 tab Q6H PRN PO .SEVERE PAIN 7-10; Start 09/08/18 at 02:30 Heparin Sodium (Porcine) (Heparin (5000 Units/1ml)) 5,000 unit Q12 SC Last administered on 09/11/18at 08:04; Admin Dose 5,000 UNIT; Start 09/08/18 at 09:00 Albuterol/ Ipratropium (Duoneb) 3 ml Q2H RESP THERAPY PRN HHN SHORTNESS OF BREATH; Start 09/08/18 at 02:30 Aspirin (Halfprin) 81 mg DAILY PO Last administered on 09/11/18at 08:03; Admin Dose 81 MG; Start 09/08/18 at 09:00 Insulin Aspart (Novolog Insulin Pen) 6 unit WITH MEALS SC Last administered on 09/11/18 11:55; Admin Dose 6 UNIT; Start 09/08/18 at 08:00 Pantoprazole (Protonix Tab) 40 mg BID@06,18 PO Last administered on 09/11/18 05:40; Admin Dose 40 MG; Start 09/08/18 at 06:00 Diagnostic Test (Pha) (Accu-Chek) 1 ea 02 XX Last administered on 09/09/18 02:08; Admin Dose 1 EA; Start 09/09/18 at 02:00 Insulin Aspart (Novolog Insulin Pen) NOVOLOG *MILD* ALGORITHM WITH MEALS BEDTIME SC Last administered on 09/11/18 08:05; Admin Dose 1 UNIT; Start 09/08/18 at 08:00 Multivitamins/ Minerals (Theragran-M) 1 tab DAILY PO Last administered on 09/11/18 08:03; Admin Dose 1 TAB; Start 09/09/18 at 09:00 Ascorbic Acid (Vitamin C) 500 mg BID PO Last administered on 09/11/18 08:03; Admin Dose 500 MG; Start 09/08/18 at 21:00 Sodium Hypochlorite (Dakins Diluted ()) 1 applic DAILY TP Last administered on 09/11/18 08:05; Admin Dose 1 APPLIC; Start 09/09/18 at 09:00 Insulin Glargine (Lantus) 26 units DAILY@2000 SC Last administered on 09/10/18 20:59; Admin Dose 26 UNITS; Start 09/09/18 at 20:00 Linagliptin (Tradjenta) 5 mg DAILY PO Last administered on 09/11/18 08:03; Admin Dose 5 MG; Start 09/10/18 at 09:00 Ceftriaxone Sodium 50 ml @ 100 mls/hr Q24H IVPB Last administered on 09/11/18 11:47; Admin Dose 100 MLS/HR; Start 09/10/18 at 11:30 IV Flush (NS 10 ml) 10 ml PRN PRN IV IV PROTOCOL; Start 09/11/18 at 13:00 Lisinopril (Zestril) 5 mg DAILY PO Last administered on 09/11/18 14:13; Admin Dose 5 MG; Start 09/11/18 at 14:30 MARY MCGEE NP Sep 11, 2018 14:55
--- NOTE | 2018-09-11 15:38 | PN ---
Date/Time of Note Date/Time of Note DATE: 09/11/18 TIME: 15:34 Assessment/Plan VTE Prophylaxis Risk score (from Nsg)>0 risk: 1 SCD applied (from Nsg): Yes Pharmacological prophylaxis: heparin Lines/Catheters IV Catheter Type (from Nrsg): PICC Line Central line still needed: Yes Urinary Cath still in place: No Assessment/Plan Assessment/Plan 1. Right foot diabetic ulcer s/p debridement 09/08/18 - Cleared for discharge by Podiatry and follow up in [facility] - Evaluated by Dr. Falcon and recommending outpatient follow up for angiogram - ID on board and appreciate recommendations for antibiotic treatment. Will continue until 10/19. CM on board for assistance with arranging HH for IV antibiotics - MRI results noted - pain control 2. Diabetes mellitus with neuropathy - DM education consultation appreciated - will continue on Lantus/ ISS - A1c noted - continue monitoring sugar and will adjust insulin for optimal control 3. Charcot neuroarthropathy - podiatry on board 4. Obesity - patient was to have gastric sleeve procedure in [place] but cancelled surgery after noticed changes to his right foot 5. 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 PAD - Arterial studies noted with "Right lower extremity with significant stenosis in the right posterior tibial artery with monophasic waveforms elevated velocity. Dorsalis pedis artery unable to be evaluated due to overlying bandage" - Vascular input appreciated 7. HTN - will start on low dose Lisinopril given needs better control in setting of DM - monitor for medication tolerance 8. Disposition - Will start on Lisinopril for BP control - CM consulted for HH and IV antibiotics - If BP remains stable and tolerating new medication, will d/c home tomorrow Result Diagram: 09/11/18 0716 09/11/18 0716 Results 24hrs Laboratory Tests Test 09/10/18 17:03 09/10/18 20:57 09/11/18 07:15 09/11/18 07:16 Bedside Glucose 147 128 C-Reactive Protein 15.3 H Procalcitonin 0.13 H White Blood Count 9.3 Red Blood Count 4.00 L Hemoglobin 10.7 L Hematocrit 32.9 L Mean Corpuscular 82.3 Volume Mean Corpuscular 26.8 L Hemoglobin Mean Corpuscular 32.5 Hemoglobin Concent Red Cell 13.6 Distribution Width Platelet Count 284 Mean Platelet Volume 10.3 Immature 1.300 H Granulocytes % Neutrophils % 60.1 Lymphocytes % 23.7 Monocytes % 9.1 Eosinophils % 5.3 Basophils % 0.5 Nucleated Red Blood 0.0 Cells % Immature 0.120 H Granulocytes # Neutrophils # 5.6 Lymphocytes # 2.2 Monocytes # 0.8 Eosinophils # 0.5 Basophils # 0.1 Nucleated Red Blood 0.0 Cells # Erythrocyte 106 H Sedimentation Rate Sodium Level 141 Potassium Level 3.5 Chloride Level 105 Carbon Dioxide Level 28 Anion Gap 8 Blood Urea Nitrogen 7 Creatinine 0.72 Glucose Level 156 Calcium Level 8.0 L Phosphorus Level 4.3 Magnesium Level 2.1 Albumin 2.9 L Test 09/11/18 07:58 09/11/18 11:51 Bedside Glucose 156 130 Subjective 24 Hr Interval Summary Free Text/Dictation Patient states he's doing well and experiencing no pain. BP elevated this afternoon. No acute overnight events. Exam/Review of Systems Exam Vitals Vital Signs Date Temp Pulse Resp B/P (MAP) Pulse Ox O2 O2 Flow FiO2 Time Delivery Rate 09/11/18 98.5 72 18 176/84 98 Room Air 13:58 (114) Intake and Output 09/10/18 09/10/18 09/11/18 1515:00 23:00 07:00 IntakeIntake Total 1320 ml 200 ml BalanceBalance 1320 ml 200 ml Exam General: Patient is sitting up in bed and answers questions appropriately Neck: Supple Respiratory: Clear to auscultation bilaterally. no wheezing or rhonchi Cardiovascular: regular rate and rhythm, no obvious murmurs Gastrointestinal: soft, nontender, nondistended, bowel sounds heard diffusely Ext: moving all extremities Skin: dressing RLE CDI Results Results 24hrs Laboratory Tests Test 09/10/18 17:03 09/10/18 20:57 09/11/18 07:15 09/11/18 07:16 Bedside Glucose 147 128 C-Reactive Protein 15.3 H Procalcitonin 0.13 H White Blood Count 9.3 Red Blood Count 4.00 L Hemoglobin 10.7 L Hematocrit 32.9 L Mean Corpuscular 82.3 Volume Mean Corpuscular 26.8 L Hemoglobin Mean Corpuscular 32.5 Hemoglobin Concent Red Cell 13.6 Distribution Width Platelet Count 284 Mean Platelet Volume 10.3 Immature 1.300 H Granulocytes % Neutrophils % 60.1 Lymphocytes % 23.7 Monocytes % 9.1 Eosinophils % 5.3 Basophils % 0.5 Nucleated Red Blood 0.0 Cells % Immature 0.120 H Granulocytes # Neutrophils # 5.6 Lymphocytes # 2.2 Monocytes # 0.8 Eosinophils # 0.5 Basophils # 0.1 Nucleated Red Blood 0.0 Cells # Erythrocyte 106 H Sedimentation Rate Sodium Level 141 Potassium Level 3.5 Chloride Level 105 Carbon Dioxide Level 28 Anion Gap 8 Blood Urea Nitrogen 7 Creatinine 0.72 Glucose Level 156 Calcium Level 8.0 L Phosphorus Level 4.3 Magnesium Level 2.1 Albumin 2.9 L Test 09/11/18 07:58 09/11/18 11:51 Bedside Glucose 156 130 Medications Medication Current Medications Collagenase (Santyl) 1 applic DAILY TOP Last administered on 09/11/18at 08:03; Admin Dose 1 APPLIC; Start 09/08/18 at 09:00 Collagenase (Santyl) 1 applic PRN PRN TOP WHEN SOILED Last administered on 09/08/18at 01:55; Admin Dose 1 APPLIC; Start 09/08/18 at 02:00 IV Flush (NS 3 ml) 3 ml PER PROTOCOL IV ; Start 09/08/18 at 02:30 Ondansetron HCl (Zofran Inj) 4 mg Q6H PRN IV NAUSEA/VOMITING; Start 09/08/18 at 02:30 Acetaminophen (Tylenol Tab) 650 mg Q6H PRN PO .PAIN 1-3 OR TEMP; Start 09/08/18 at 02:30 Acetaminophen/ Hydrocodone Bitart ([place] (5/325)) 1 tab Q6H PRN PO .MOD PAIN 4- 6; Start 09/08/18 at 02:30 Acetaminophen/ Hydrocodone Bitart ([place] (5/325)) 2 tab Q6H PRN PO .SEVERE PAIN 7-10; Start 09/08/18 at 02:30 Heparin Sodium (Porcine) (Heparin (5000 Units/1ml)) 5,000 unit Q12 SC Last administered on 09/11/18at 08:04; Admin Dose 5,000 UNIT; Start 09/08/18 at 09:00 Albuterol/ Ipratropium (Duoneb) 3 ml Q2H RESP THERAPY PRN HHN SHORTNESS OF BREATH; Start 09/08/18 at 02:30 Aspirin (Halfprin) 81 mg DAILY PO Last administered on 09/11/18 08:03; Admin Dose 81 MG; Start 09/08/18 at 09:00 Insulin Aspart (Novolog Insulin Pen) 6 unit WITH MEALS SC Last administered on 09/11/18 11:55; Admin Dose 6 UNIT; Start 09/08/18 at 08:00 Pantoprazole (Protonix Tab) 40 mg BID@06,18 PO Last administered on 09/11/18 05:40; Admin Dose 40 MG; Start 09/08/18 at 06:00 Diagnostic Test (Pha) (Accu-Chek) 1 ea 02 XX Last administered on 09/09/18 02:08; Admin Dose 1 EA; Start 09/09/18 at 02:00 Insulin Aspart (Novolog Insulin Pen) NOVOLOG *MILD* ALGORITHM WITH MEALS BEDTIME SC Last administered on 09/11/18 08:05; Admin Dose 1 UNIT; Start 09/08/18 at 08:00 Multivitamins/ Minerals (Theragran-M) 1 tab DAILY PO Last administered on 09/11/18 08:03; Admin Dose 1 TAB; Start 09/09/18 at 09:00 Ascorbic Acid (Vitamin C) 500 mg BID PO Last administered on 09/11/18 08:03; Admin Dose 500 MG; Start 09/08/18 at 21:00 Sodium Hypochlorite (Dakins Diluted ()) 1 applic DAILY TP Last administered on 09/11/18 08:05; Admin Dose 1 APPLIC; Start 09/09/18 at 09:00 Insulin Glargine (Lantus) 26 units DAILY@2000 SC Last administered on 09/10/18 20:59; Admin Dose 26 UNITS; Start 09/09/18 at 20:00 Linagliptin (Tradjenta) 5 mg DAILY PO Last administered on 09/11/18 08:03; Admin Dose 5 MG; Start 09/10/18 at 09:00 Ceftriaxone Sodium 50 ml @ 100 mls/hr Q24H IVPB Last administered on 09/11/18 11:47; Admin Dose 100 MLS/HR; Start 09/10/18 at 11:30 IV Flush (NS 10 ml) 10 ml PRN PRN IV IV PROTOCOL; Start 09/11/18 at 13:00 Lisinopril (Zestril) 5 mg DAILY PO Last administered on 09/11/18at 14:13; Admin Dose 5 MG; Start 09/11/18 at 14:30 STEPHANIE MARTINEZ MD Sep 11, 2018 15:38
[2018-09-11 16:53] VITALS: BP 177/70; PULSE 64; RESP 18
[2018-09-11] MEDS: hydrALAzine 20 MG INJ IV PRN (17:06)
--- NOTE | 2018-09-11 17:06 | CONS ---
DATE OF ADMISSION: 09/07/2018 DATE OF CONSULTATION: 09/11/2018 TYPE OF CONSULTATION: Vascular consultation. REFERRING PHYSICIAN: Ana Weber MD REASON FOR CONSULTATION: Right foot ulcer with abnormal arterial duplex. HISTORY OF PRESENT ILLNESS: This is a 53-year-old diabetic hypertensive gentleman. He is morbidly obese. He has had a plantar right foot ulcer for the past [address] Sheppard has been following him in the wound center and now he has developed an abscess on the lateral aspect of the foot. He was admitted through the emergency room for this and Dr. Sheppard has now debrided it and drained the abscess that was done several days ago. He had an arterial duplex done on 09/08/2018 that shows right sided tibial disease. He has monophasic posterior tibial flow and the dorsalis pedis could not be evaluated because of dressings from the recent surgery. I was asked to evaluate him from a vascular standpoint. He has essentially a Charcot foot. He has osteomyelitis and Charcot deformity of the foot. He has had the right third toe amputated in the past and this is well healed. PAST MEDICAL HISTORY: Significant for diabetes, hypertension, obesity, peripheral arterial disease, hyperlipidemia, diabetic foot infection and chronic venous stasis changes. MEDICATIONS: Consist of: 1. Ceftriaxone. 2. Tradjenta. 3. Lantus. 4. Vitamins. 5. He is getting [place] packing. 6. Vitamin C. 7. Santyl. 8. Subcutaneous heparin. 9. Aspirin. 10. Insulin. 11. Protonix. 12. Zofran. 13. [place]. ALLERGIES: HAS NO KNOWN DRUG ALLERGIES. SOCIAL HISTORY: He is a nonsmoker. He does not drink or use any illicit drugs. 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 He admits his blood sugars have been poorly controlled and his diet was poor until recently. FAMILY HISTORY: Noncontributory. PAST SURGICAL HISTORY: Only significant for the right third toe amputation and a recent foot debridement. REVIEW OF SYSTEMS: He currently denies any chest pain, shortness of breath, nausea, vomiting or diarrhea. No fever, no chills, no recent weight gain. I see no recent weight loss. He has gained he said about 50 pounds over the last 6 months or so, maybe because he has not been walking on the foot. PHYSICAL EXAMINATION: GENERAL: He is a middle-aged - gentleman. He speaks Amharic fluently. VITAL SIGNS: He has been afebrile. Blood pressure is 155/65, heart rate 69, respiratory rate is 18. He has 98% sat on room air. PERIPHERAL VASCULAR: He has 2+ radial, brachial, and carotid pulses bilaterally. LUNGS: Clear. HEART: Regular rate and rhythm. ABDOMEN: Obese. He has a very large pannus, soft and nontender. EXTREMITIES: He has 2+ femoral and popliteal pulses bilaterally. On the left, he has a 1+ DP and PT pulses. He has advanced chronic venous stasis changes in the left leg with a lot of hyperpigmentation. He has an obvious Charcot deformity of the right ankle. There is a lot of edema in that leg. I can feel right at the top of the foot, there is a faint dorsalis pedis pulse palpable. I do not feel PT pulse. He has large wounds on the plantar foot and on the lateral foot. There is packing in there currently in the tract between the 2 wounds. There is no odor. I do not see any drainage. There is a little bit of serous fluid on the dressing. No pus coming out. LABORATORY VALUES: Show normal white count of 9.3. It has come down from 13. His platelet count is normal on the 200s. Creatinine is 0.7 and I reviewed his arterial duplex that does show mostly tibial disease on the right. He has triphasic waveforms down to the pop and then posterior tibial is monophasic. On the left, the waveforms are normal and triphasic and there is no significant stenosis on the left. IMPRESSION: Extensive tissue loss, right foot with drained abscess and Charcot deformity of the ankle. He has signs of arterial insufficiency. He is a long- term diabetic. He has already got a PICC line. He is being set up for home IV antibiotics. He can be discharged from my standpoint. I will see him back in the wound center or office next week and reevaluate him then. He will most likely benefit from an arteriogram, which can be done as an outpatient. He does not need to stay in the hospital, He is already going to get 6 weeks of IV antibiotics and Dr. Sheppard will see him for wound care and further debridement. I will follow him as well in the wound center. Dictated By: CASSIE PETTIT/REGINE Conf#: [id number] DID#: [id number] CC: HUMA LACKEY MD; ANA WEBER MD; KRYSTAL JIMÉNEZ MD; CARLOS SHEPPARD MD;*EndCC* MTDD
[2018-09-11 18:20] VITALS: BP 159/69; PULSE 83
[2018-09-11 20:00] VITALS: BP 167/72; PULSE 68; RESP 19
[2018-09-11] MEDS: INSULIN GLARGINE [LANTus] (100 UNITS/ML) SYG SC SCH (21:17)
[2018-09-12 02:00] VITALS: BP 153/72; PULSE 70; RESP 17
[2018-09-12] MEDS: PANTOPRAZOLE (EC) 40 MG TAB PO SCH (05:41)
[2018-09-12 07:48] VITALS: BP 179/82; PULSE 71; RESP 18
[2018-09-12] MEDS: INSULIN ASPART [NOVOLOG] 3 ML PEN SC SCH ×2 (08:00→08:40)
[2018-09-12] MEDS: ASPIRIN (EC) 81 MG TAB PO SCH (08:17)
[2018-09-12] MEDS: LINAGLIPTIN 5 MG TABLET PO SCH (08:18)
[2018-09-12] MEDS: ASCORBIC ACID 500 MG TAB PO SCH (08:18)
[2018-09-12] MEDS: MULTIVITAMINS/MINERALS TAB PO SCH (08:18)
[2018-09-12] MEDS: COLLAGENASE 5 GM (UD JAR) TOP SCH (08:19)
[2018-09-12] MEDS: DAKINS 0.0125%(1/40) 473 ML SOLUTION TP SCH (08:20)
[2018-09-12] MEDS: hydrALAzine 20 MG INJ IV PRN (08:20)
[2018-09-12] MEDS: HEPARIN 5,000 UNIT/1 ML VIAL SC SCH (08:23)
[2018-09-12] MEDS ORDERED: POTASSIUM CHLORIDE (SR) 20 MEQ TAB PO STA (08:56)
[2018-09-12] MEDS ORDERED: LISINOPRIL 10 MG TAB PO SCH (09:00)
[2018-09-12] MEDS ORDERED: LISINOPRIL 10 MG TAB PO ONE (09:00)
--- NOTE | 2018-09-12 10:12 | PN ---
Date/Time of Note Date/Time of Note DATE: 09/12/18 TIME: 10:10 Assessment/Plan VTE Prophylaxis Risk score (from Nsg)>0 risk: 1 SCD applied (from Nsg): Yes Pharmacological prophylaxis: NA/contraindicated Pharm contraindication: low risk/ambulating Lines/Catheters IV Catheter Type (from Nrsg): PICC Line Central line still needed: Yes (Iv antibiotics) Urinary Cath still in place: No Assessment/Plan Assessment/Plan 1. Right foot diabetic ulcer s/p debridement 09/08/18 - Podiatry consultation appreciated and will need patient to follow up in [facility] as outpatient for further debridements - Evaluated by Dr. Falcon and recommending outpatient follow up for angiogram - ID on board and appreciate recommendations for antibiotic treatment until 10/19 - MRI results noted - pain control 2. Diabetes mellitus with neuropathy - DM education consultation appreciated - will continue on Lantus/ ISS - A1c noted 3. Charcot neuroarthropathy - podiatry on board 4. Obesity - patient was to have gastric sleeve procedure in [place] but cancelled surgery after noticed changes to his right foot 5. 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 PAD - Arterial studies noted with "Right lower extremity with significant stenosis in the right posterior tibial artery with monophasic waveforms elevated velocity. Dorsalis pedis artery unable to be evaluated due to overlying bandage" - Vascular input appreciated 7. HTN - Continue on Lisinopril - elevated this am but most likely secondary to anxiety about leaving by 12 8. Disposition - Medically stable for discharge home Result Diagram: 09/12/18 0648 09/12/18 0648 Results 24hrs Laboratory Tests Test 09/11/18 11:51 09/11/18 17:03 09/11/18 21:16 09/12/18 06:48 Bedside Glucose 130 114 126 White Blood Count 8.1 Red Blood Count 4.00 L Hemoglobin 10.6 L Hematocrit 33.1 L Mean Corpuscular 82.8 Volume Mean Corpuscular 26.5 L Hemoglobin Mean Corpuscular 32.0 Hemoglobin Concent Red Cell 13.9 Distribution Width Platelet Count 298 Mean Platelet Volume 9.9 Immature 1.200 H Granulocytes % Neutrophils % 62.2 Lymphocytes % 22.8 Monocytes % 8.8 Eosinophils % 4.5 Basophils % 0.5 Nucleated Red Blood 0.0 Cells % Immature 0.100 H Granulocytes # Neutrophils # 5.0 Lymphocytes # 1.8 Monocytes # 0.7 Eosinophils # 0.4 Basophils # 0.0 Nucleated Red Blood 0.0 Cells # Sodium Level 143 Potassium Level 3.6 Chloride Level 106 Carbon Dioxide Level 29 Anion Gap 8 Blood Urea Nitrogen 7 Creatinine 0.75 Glucose Level 107 # Calcium Level 8.2 L Phosphorus Level 4.2 Magnesium Level 2.2 Albumin 3.0 L Test 09/12/18 08:13 Bedside Glucose 112 Subjective 24 Hr Interval Summary Free Text/Dictation Patient states he's doing well and denies any pain. No acute overnight events. BP elevated but anxious to go home. Exam/Review of Systems Exam Vitals Vital Signs Date Temp Pulse Resp B/P (MAP) Pulse Ox O2 O2 Flow FiO2 Time Delivery Rate 09/12/18 98.3 71 18 179/82 96 Room Air 07:48 (114) Intake and Output 09/11/18 09/11/18 09/12/18 1515:00 23:00 07:00 IntakeIntake Total 600 ml 400 ml BalanceBalance 600 ml 400 ml Exam General: Patient is sitting in chair at bedside. no acute distress Neck: Supple Respiratory: Clear to auscultation bilaterally. no wheezing or rhonchi Cardiovascular: regular rate and rhythm, no obvious murmurs Gastrointestinal: soft, nontender, nondistended, bowel sounds heard diffusely Ext: moving all extremities Skin: dressing RLE CDI Results Results 24hrs Laboratory Tests Test 09/11/18 11:51 09/11/18 17:03 09/11/18 21:16 09/12/18 06:48 Bedside Glucose 130 114 126 White Blood Count 8.1 Red Blood Count 4.00 L Hemoglobin 10.6 L Hematocrit 33.1 L Mean Corpuscular 82.8 Volume Mean Corpuscular 26.5 L Hemoglobin Mean Corpuscular 32.0 Hemoglobin Concent Red Cell 13.9 Distribution Width Platelet Count 298 Mean Platelet Volume 9.9 Immature 1.200 H Granulocytes % Neutrophils % 62.2 Lymphocytes % 22.8 Monocytes % 8.8 Eosinophils % 4.5 Basophils % 0.5 Nucleated Red Blood 0.0 Cells % Immature 0.100 H Granulocytes # Neutrophils # 5.0 Lymphocytes # 1.8 Monocytes # 0.7 Eosinophils # 0.4 Basophils # 0.0 Nucleated Red Blood 0.0 Cells # Sodium Level 143 Potassium Level 3.6 Chloride Level 106 Carbon Dioxide Level 29 Anion Gap 8 Blood Urea Nitrogen 7 Creatinine 0.75 Glucose Level 107 # Calcium Level 8.2 L Phosphorus Level 4.2 Magnesium Level 2.2 Albumin 3.0 L Test 09/12/18 08:13 Bedside Glucose 112 Medications Medication Current Medications Collagenase (Santyl) 1 applic DAILY TOP Last administered on 09/12/18at 08:19; Admin Dose 1 APPLIC; Start 09/08/18 at 09:00 Collagenase (Santyl) 1 applic PRN PRN TOP WHEN SOILED Last administered on 09/08/18at 01:55; Admin Dose 1 APPLIC; Start 09/08/18 at 02:00 IV Flush (NS 3 ml) 3 ml PER PROTOCOL IV ; Start 09/08/18 at 02:30 Ondansetron HCl (Zofran Inj) 4 mg Q6H PRN IV NAUSEA/VOMITING; Start 09/08/18 at 02:30 Acetaminophen (Tylenol Tab) 650 mg Q6H PRN PO .PAIN 1-3 OR TEMP; Start 09/08/18 at 02:30 Acetaminophen/ Hydrocodone Bitart (Bucks (5/325)) 1 tab Q6H PRN PO .MOD PAIN 4- 6; Start 09/08/18 at 02:30 Acetaminophen/ Hydrocodone Bitart (Bucks (5/325)) 2 tab Q6H PRN PO .SEVERE PAIN 7-10; Start 09/08/18 at 02:30 Heparin Sodium (Porcine) (Heparin (5000 Units/1ml)) 5,000 unit Q12 SC Last administered on 09/12/18at 08:23; Admin Dose 5,000 UNIT; Start 09/08/18 at 09:00 Albuterol/ Ipratropium (Duoneb) 3 ml Q2H RESP THERAPY PRN HHN SHORTNESS OF BREATH; Start 09/08/18 at 02:30 Aspirin (Halfprin) 81 mg DAILY PO Last administered on 09/12/18at 08:17; Admin Dose 81 MG; Start 09/08/18 at 09:00 Insulin Aspart (Novolog Insulin Pen) 6 unit WITH MEALS SC Last administered on 09/12/18at 08:40; Admin Dose 6 UNIT; Start 09/08/18 at 08:00 Pantoprazole (Protonix Tab) 40 mg BID@,18 PO Last administered on 09/12/18 05:41; Admin Dose 40 MG; Start 09/08/18 at 06:00 Insulin Aspart (Novolog Insulin Pen) NOVOLOG *MILD* ALGORITHM WITH MEALS BEDTIME SC Last administered on 09/11/18 08:05; Admin Dose 1 UNIT; Start 09/08/18 at 08:00 Multivitamins/ Minerals (Theragran-M) 1 tab DAILY PO Last administered on 09/12/18 08:18; Admin Dose 1 TAB; Start 09/09/18 at 09:00 Ascorbic Acid (Vitamin C) 500 mg BID PO Last administered on 09/12/18 08:18; Admin Dose 500 MG; Start 09/08/18 at 21:00 Sodium Hypochlorite (Dakins Diluted ()) 1 applic DAILY TP Last administered on 09/12/18 08:20; Admin Dose 1 APPLIC; Start 09/09/18 at 09:00 Insulin Glargine (Lantus) 26 units DAILY@2000 SC Last administered on 09/11/18 21:17; Admin Dose 26 UNITS; Start 09/09/18 at 20:00 Linagliptin (Tradjenta) 5 mg DAILY PO Last administered on 09/12/18 08:18; Admin Dose 5 MG; Start 09/10/18 at 09:00 Ceftriaxone Sodium 50 ml @ 100 mls/hr Q24H IVPB Last administered on 09/11/18 11:47; Admin Dose 100 MLS/HR; Start 09/10/18 at 11:30 IV Flush (NS 10 ml) 10 ml PRN PRN IV IV PROTOCOL; Start 09/11/18 at 13:00 Hydralazine HCl (Apresoline) 10 mg Q4H PRN IV SBP >170 Last administered on 09/12/18 08:20; Admin Dose 10 MG; Start 09/11/18 at 17:00 Lisinopril (Zestril) 20 mg DAILY PO ; Start 09/13/18 at 09:00 STEPHANIE MARTINEZ MD Sep 12, 2018 10:12
[2018-09-12] MEDS ORDERED: Insulin Glargine SC (10:17)
[2018-09-12] MEDS ORDERED: LISI-471 PO (10:17)
[2018-09-12] MEDS ORDERED: LINA5TAB PO (10:17)
--- NOTE | 2018-09-12 10:20 | PDOCDIS ---
Discharge Instructions DIAGNOSIS Discharge Diagnosis 1. Right foot diabetic ulcer s/p debridement 09/08/18, antibiotics until 10/19/18 2. Diabetes mellitus with neuropathy 3. Charcot neuroarthropathy 4. Obesity 5. 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 PAD 7. HTN CONDITION [id number] Patient Condition: [id number] Stable HOME CARE INSTRUCTIONS: [id number] Diet Instructions: [id number] Low Fat /Cholesterol ACTIVITY: [id number] Activity Restrictions: [id number] No Restrictions FOLLOW UP/APPOINTMENTS Follow-up Plan 1. Follow up with your primary care physician in 1-2 weeks 2. Follow up with Dr. Falcon in 1-2 weeks. Please call his office to schedule an appointment 3. Follow up with Dr. Mclaughlin/Dr Madrid at [facility] clinic in 1 week 4. You will need to continue on antibiotics once a day until 10/19/18 5. Use special boot on right foot when ambulating 6. Take Lantus 26 units daily and continue with novolog 6 units with meals to continue with good sugar control 7. Take Lisinopril 20mg daily to control blood pressure 8. If experiencing any concerning symptoms, please go to your nearest emergency department STEPHANIE MARTINEZ MD Sep 12, 2018 10:20
[2018-09-12] MEDS: CEFTRIAXONE 1 GM/50 ML (PMX) 50 ML IVPB SCH (11:17)
--- NOTE | 2018-09-12 14:52 | CONS ---
Assessment/Plan Assessment/Plan Hospital Course (Demo Recall) 1200 no acute events overnight patient looks comfortable, no fevers Blood cultures have been negative right foot culture growing MSSA Antimicrobials: Rocephin Physical examination: Well-developed obese middle-aged man who is in no distress. Head atraumatic normocephalic neck is supple chest rise symmetrical breath sounds diminished bases heart: S1-S2 abdomen soft bowel sounds present extremities with right foot dressing intact Assessment: 1. Right foot cellulitis/osteomyelitis/abscess, status post I&D 2. Charcot neuroarthropathy 3. Diabetes 4. Obesity Plan: Remains stable, continue present care, antibiotics for 6 weeks, follow with podiatry outpatient Consultation Date/Type/Reason Admit Date/Time Sep 07, 2018 at 20:34 Initial Consult Date Type of Consult id Date/Time of Note DATE: 09/12/18 TIME: 14:51 Exam/Review of Systems Exam Vitals Vital Signs Date Temp Pulse Resp B/P (MAP) Pulse Ox O2 O2 Flow FiO2 Time Delivery Rate 09/12/18 98.3 71 18 179/82 96 Room Air 07:48 (114) Intake and Output 09/11/18 09/11/18 09/12/18 1515:00 23:00 07:00 IntakeIntake Total 600 ml 400 ml BalanceBalance 600 ml 400 ml Results Result Diagram: 09/12/18 0648 09/12/18 0648 Results 24hrs Laboratory Tests Test 09/11/18 17:03 09/11/18 21:16 09/12/18 06:46 09/12/18 06:48 Bedside Glucose 114 126 Erythrocyte 98 H Sedimentation Rate C-Reactive Protein 7.2 H Procalcitonin 0.12 H White Blood Count 8.1 Red Blood Count 4.00 L Hemoglobin 10.6 L Hematocrit 33.1 L Mean Corpuscular 82.8 Volume Mean Corpuscular 26.5 L Hemoglobin Mean Corpuscular 32.0 Hemoglobin Concent Red Cell 13.9 Distribution Width Platelet Count 298 Mean Platelet Volume 9.9 Immature 1.200 H Granulocytes % Neutrophils % 62.2 Lymphocytes % 22.8 Monocytes % 8.8 Eosinophils % 4.5 Basophils % 0.5 Nucleated Red Blood 0.0 Cells % Immature 0.100 H Granulocytes # Neutrophils # 5.0 Lymphocytes # 1.8 Monocytes # 0.7 Eosinophils # 0.4 Basophils # 0.0 Nucleated Red Blood 0.0 Cells # Sodium Level 143 Potassium Level 3.6 Chloride Level 106 Carbon Dioxide Level 29 Anion Gap 8 Blood Urea Nitrogen 7 Creatinine 0.75 Glucose Level 107 # Calcium Level 8.2 L Phosphorus Level 4.2 Magnesium Level 2.2 Albumin 3.0 L Test 09/12/18 08:13 Bedside Glucose 112 MRAY MCGEE NP Sep 12, 2018 14:52
--- NOTE | 2018-09-12 19:41 | DS ---
Date/Time of Note Date/Time of Note DATE: 09/12/18 TIME: 19:36 Discharge Summary Admission/Discharge Info Admit Date/Time Sep 07, 2018 at 20:34 Discharge Date/Time Sep 12, 2018 at 12:44 Discharge Diagnosis 1. Right foot diabetic ulcer s/p debridement 09/08/18, antibiotics until 10/19/18 2. Diabetes mellitus with neuropathy 3. Charcot neuroarthropathy 4. Obesity 5. 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 PAD 7. HTN Patient Condition: Stable Consults Podiatry- Dr. Madrid/Lissette Vascular surgery- Dr. Falcon Infectious disease- Dr. Cota Procedures Date/Time of Note Date/Time of Note DATE: 09/08/18 TIME: 18:33 Operative Report Preoperative Diagnosis Right foot diabetic ulcer Right foot cellulitis DM2 with peripheral neuropathy Charcot neuroarthropathy Right foot abscess Postoperative Diagnosis Right foot diabetic ulcer Right foot cellulitis DM2 with peripheral neuropathy Charcot neuroarthropathy Right foot abscess Operation/Procedure Performed right foot excisional debridement Right foot incision and drainage Hx of Present Illness Patient is a 53-year-old obese male with a history of hypertension, insulin- dependent diabetes, gastric ulcer, severe right foods Charcot deformity, right foot infection, right third toe amputation who presented to ER complaining of right foods swelling and drainage. He said that he had similar problems in January of last year. He was wearing a special shoe, however for the past 2 months he has not been wearing it and that he thinks that what caused his current problem. He said it started out as a swelling and then started leaking. Right foot x-ray in the ER shows a severe Charcot deformity of the need food bolus and a severe erosive change, unchanged from the x-ray from February and in January of last year. Hospital Course Patient was admitted for treatment of right foot ulcer and Podiatry was consulted. MRI was performed and revealed osteomyelitis. Infectious disease was consulted for antibiotic management. Patient underwent debridement in the OR which he tolerated and helped relieve his pain. Patients diabetic medications were adjusted for better glucose control and he was started on antihypertensive for elevated blood pressure. Patient required 6 weeks of IV antibiotics and PICC line was placed for IV access. CM was on board for assistance with making arrangement for the home IV infusions and PICC line care. Patient was evaluated by vascular surgery after arterial studies revealed " Right lower extremity with significant stenosis in the right posterior tibial a rtery with monophasic waveforms elevated velocity." Patient was instructed to follow up with Vascular surgery and Podiatry as an outpatient. He remained stable during hospitalization and was discharged home in stable condition. Home Meds Active Scripts [Insulin Glargine] 100 UNITS/ML SOLN No Conflict Check, 26 UNITS SC DAILY@2000 for 30 Days, #10 EACH 1 Refill Prov:STEPHANIE MARTINEZ MD 09/12/18 Linagliptin (TRADJENTA) 5 Mg Tablet, 5 MG PO DAILY for 30 Days, #30 TAB 1 Refill Prov:STEPHANIE MARTINEZ MD 09/12/18 Lisinopril* (Lisinopril*) 20 Mg Tablet, 20 MG PO DAILY for 30 Days, #30 TAB 1 Refill Prov:STEPHANIE MARTINEZ MD 09/12/18 Ceftriaxone Na/Dextrose,Iso (Ceftriaxone 1 gm Piggyback) 1 Gm/50 Ml Froz.piggy, 1 GM IV Q24H, #42 Last day 03/13/2018. Prov:LACEY MEYER NP 01/30/18 Metformin* (Glucophage*) 500 Mg Tab, 500 MG PO BID WITH MEALS, #60 TAB Prov:LACEY MEYER NP 01/30/18 Insulin Aspart* (Novolog Insulin Pen*) 100 Unit/Ml Soln, 6 UNIT SC WITH MEALS, #1 Prov:LACEY MEYER NP 01/30/18 Pantoprazole* (Pantoprazole*) 40 Mg Tablet.dr, 40 MG PO BID@06,18, #60 Prov:LACEY MEYER NP 01/30/18 Aspirin* (Aspirin* EC) 81 Mg Tablet.dr, 81 MG PO DAILY, #30 Prov:LACEY MEYER NP 01/30/18 Discontinued Reported Medications Insulin Lispro (Humalog) 100 Unit/1 Ml Cartridge, 10 UNIT SQ AC MEALS, EA 09/08/18 Discontinued Scripts [Vancomycin Iv Per Pharmacy] 1 EA EACH No Conflict Check, 0 EA XX .PER PROTOCOL Last day 03/05/2018. Prov:LACEY MEYER NP 01/30/18 Clarithromycin* (Clarithromycin*) 500 Mg Tablet, 250 MG PO BID, #20 TAB Prov:LACEY MEYER NP 01/30/18 [Insulin Glargine] 100 UNITS/ML SOLN No Conflict Check, 18 UNITS SC DAILY@1999, #1 Prov:LACEY MEYER [employer] 01/30/18 Follow-up Plan 1. Follow up with your primary care physician in 1-2 weeks 2. Follow up with Dr. Falcon in 1-2 weeks. Please call his office to schedule an appointment 3. Follow up with Dr. Mclaughlin/Dr Madrid at [facility] clinic in 1 week 4. You will need to continue on antibiotics once a day until 10/19/18 5. Use special boot on right foot when ambulating 6. Take Lantus 26 units daily and continue with novolog 6 units with meals to continue with good sugar control 7. Take Lisinopril 20mg daily to control blood pressure 8. If experiencing any concerning symptoms, please go to your nearest emergency department Primary Care Provider Not On Staff Doctor Time spent on discharge: > 30 minutes Pending Labs Laboratory Tests Test 09/11/18 21:16 09/12/18 06:46 09/12/18 06:48 09/12/18 08:13 Bedside 126 112 Glucose mg/dL (70-220) mg/dL (70-220) Erythrocyte 98 Sedimentation mm/Hr (0-20) Rate C-Reactive 7.2 Protein mg/dl (0.0-0.9 ) Procalcitonin 0.12 ng/mL (0.00-0. 10) White Blood 8.1 Count 10^3/ul (4.8-1 0.8) Red Blood 4.00 Count 10^6/ul (4.70- 6.10) Hemoglobin 10.6 g/dl (14.0-18. 0) Hematocrit 33.1 % (42.0-52.0) Mean 82.8 Corpuscular fl (82.0-101.0 Volume ) Mean 26.5 Corpuscular pg (29.0-33.0) Hemoglobin Mean 32.0 Corpuscular g/dl (32.0-37. Hemoglobin Conc 0) ent Red Cell 13.9 Distribution % (11.5-14.5) Width Platelet Count 298 10^3/UL (140-4 15) Mean Platelet 9.9 Volume fl (7.4-10.4) Immature 1.200 Granulocytes % % (0.001-0.429 ) Neutrophils % 62.2 % (39.0-77.0) Lymphocytes % 22.8 % (15.0-51.0) Monocytes % 8.8 % (0.0-11.0) Eosinophils % 4.5 % (0.0-7.0) Basophils % 0.5 % (0.0-2.0) Nucleated Red 0.0 Blood Cells % /100WBC (0.0-0 .0) Immature 0.100 Granulocytes # 10^3/ul (0.0-0 .031) Neutrophils # 5.0 10^3/ul (1.6-7 .5) Lymphocytes # 1.8 10^3/ul (0.8-2 .9) Monocytes # 0.7 10^3/ul (0.3-0 .9) Eosinophils # 0.4 10^3/ul (0.0-0 .5) Basophils # 0.0 10^3/ul (0.0-0 .1) Nucleated Red 0.0 Blood Cells # 10^3/ul (0.0-0 .0) Sodium Level 143 mmol/L (135-14 4) Potassium 3.6 Level mmol/L (3.5-5. 1) Chloride Level 106 mmol/L (97-110 ) Carbon Dioxide 29 Level mmol/L (21-31) Anion Gap 8 (5-13) Blood Urea 7 mg/dl (7-20) Nitrogen Creatinine 0.75 mg/dl (0.61-1. 24) Glucose Level 107 mg/dl (70-220) Calcium Level 8.2 mg/dl (8.4-10. 2) Phosphorus 4.2 Level mg/dl (2.5-4.9 ) Magnesium 2.2 Level mg/dl (1.7-2.5 ) Albumin 3.0 g/dl (3.3-4.9) STEPHANIE MARTINEZ MD Sep 12, 2018 19:41
[2018-09-13] MEDS ORDERED: LISINOPRIL 20 MG TAB PO SCH (09:00)
== END 2018-09-12 12:44 | disposition home health service (06) | DRG 854 ==
LOC: E/R 19:18 → 5EC 20:34
PROVIDERS: ADMIT Internal Medicine; ATTEND Internal Medicine
PROC: 0KBV0ZZ Excision of Right Foot Muscle, Open Approach (ICD-10-PCS; 2018-09-08)
PROC: 0H9MXZX Drainage of Right Foot Skin, External Approach, Diagnostic (ICD-10-PCS; principal; 2018-09-08 17:00)
PROC: 02HV33Z Insertion of Infusion Device into Superior Vena Cava, Percutaneous Approach (ICD-10-PCS; 2018-09-11)
DX: A41.01 Sepsis due to Methicillin susceptible Staphylococcus aureus (principal); M86.9 Osteomyelitis, unspecified; L03.115 Cellulitis of right lower limb; Z68.42 Body mass index [BMI] 45.0-49.9, adult; E11.621 Type 2 diabetes mellitus with foot ulcer; E11.610 Type 2 diabetes mellitus with diabetic neuropathic arthropathy; L97.519 Non-pressure chronic ulcer of other part of right foot with unspecified severity; E66.01 Morbid (severe) obesity due to excess calories; E11.65 Type 2 diabetes mellitus with hyperglycemia; I10 Essential (primary) hypertension; E78.5 Hyperlipidemia, unspecified; D64.9 Anemia, unspecified; I73.9 Peripheral vascular disease, unspecified; Z79.4 Long term (current) use of insulin
CPT/HCPCS: 36415; 36569; 71045; 73630; 73718; 73721; 76937; 80048; 80053; 80061; 80069; 80202; 82962; 83036; 83605; 83690; 83735; 84100; 84145; 85025; 85610; 85651; 85730; 86140; 87070; 87075; 87102; 93005; 93922; 96365; 96375; 97162; C1769; J0360; J0692; J0696; J1644; J1815; J2250; J2405; J2543; J2765; J3010; J3370; J7030; J7040; J7050

== ENCOUNTER 2018-10-02 14:48 | Emergency (ER) | payer BC, OTHER ==
[~2018-10-02] VITALS: Wt 131.8 kg
[~2018-10-02 14:48] MED LIST changes: -CLAR500T PO; +LINA5TAB PO; +LISI-471 PO; -Vancomycin Iv Per Pharmacy XX
[2018-10-02 14:51] VITALS: Wt 131.8 kg
[2018-10-02] MEDS ORDERED: LIDOCAINE 1% (MPF) 5 ML VIAL SC ONE (15:30)
[2018-10-02] MEDS ORDERED: LISI-471 PO (16:22)
[2018-10-02] MEDS ORDERED: INSU100I33 SC (16:22)
[2018-10-02] MEDS ORDERED: INSU100C SQ (16:23)
--- NOTE | 2018-10-02 17:29 | ERD ---
ER Documentation Chief Complaint Chief Complaint PICC to devyn, states need picc line advanced HPI 53-year-old male presents to the emergency department stating that he needs his PICC line reinserted. He has no other acute complaints. He states he is using the PICC line for IV antibiotics for chronic wound of his lower extremity. He reports no chest pain, shortness of breath or other complaints. ROS All systems reviewed and are negative except as per history of present illness. Medications Home Meds Reported Medications Insulin Lispro (Humalog) 100 Unit/1 Ml Cartridge, 8 UNIT SQ WITH MEALS, EA 10/02/18 Insulin Glargine,Hum.rec.anlog (Basaglar Kwikpen U-100) 100 Unit/1 Ml Insuln.pen, 12 UNIT SC QAM, EA 10/02/18 Lisinopril* (Lisinopril*) 20 Mg Tablet, 20 MG PO DAILY, #30 TAB 10/02/18 Discontinued Scripts [Insulin Glargine] 100 UNITS/ML SOLN No Conflict Check, 26 UNITS SC DAILY@1999 for 30 Days, #10 EACH 1 Refill Prov:STEPHANIE MARTINEZ MD 09/12/18 Linagliptin (TRADJENTA) 5 Mg Tablet, 5 MG PO DAILY for 30 Days, #30 TAB 1 Refill Prov:STEPHANIE MARTINEZ MD 09/12/18 Lisinopril* (Lisinopril*) 20 Mg Tablet, 20 MG PO DAILY for 30 Days, #30 TAB 1 Refill Prov:STEPHANIE MARTINEZ MD 09/12/18 Ceftriaxone Na/Dextrose,Iso (Ceftriaxone 1 gm Piggyback) 1 Gm/50 Ml Froz.piggy, 1 GM IV Q24H, #42 Last day 03/13/2018. Prov:LACEY MEYER NP 01/30/18 Metformin* (Glucophage*) 500 Mg Tab, 500 MG PO BID WITH MEALS, #60 TAB Prov:LACEY MEYER NP 01/30/18 Insulin Aspart* (Novolog Insulin Pen*) 100 Unit/Ml Soln, 6 UNIT SC WITH MEALS, #1 Prov:LACEY MEYER NP 01/30/18 Pantoprazole* (Pantoprazole*) 40 Mg Tablet.dr, 40 MG PO BID@, #60 Prov:LACEY MEYER NP 01/30/18 Aspirin* (Aspirin* EC) 81 Mg Tablet., 81 MG PO DAILY, #30 Prov:LACEY MEYER [employer] 01/30/18 Allergies Allergies: Coded Allergies: No Known Allergy (Unverified , 10/02/18) PMhx/Soc History of Surgery: Yes (right fort 3rd toe sx 2 yrs ago.) Anesthesia Reaction: No Hx Neurological Disorder: No Hx Respiratory Disorders: No Hx Cardiac Disorders: Yes (htn) Hx Psychiatric Problems: No Hx Miscellaneous Medical Probl: Yes (HTN, IDDM, obesity, gastric ulcer, severe R foot charcot deformity, PAD, R ) Hx Alcohol Use: No Hx Substance Use: No Hx Tobacco Use: No Smoking Status: Never smoker Physical Exam Vitals Vital Signs Date Temp Pulse Resp B/P (MAP) Pulse Ox O2 O2 Flow FiO2 Time Delivery Rate 10/02/18 98.1 75 16 124/69 100 Room Air 15:21 (87) 10/02/18 97.4 82 20 146/68 97 14:51 (94) Physical Exam GENERAL: The patient is well developed and appropriate for usual state of health in no apparent distress EXTREMITIES: Patient has a chronic wound in his lower extremity without indication of acute infection. PICC line is in the left upper extremity without obvious infection at the insertion site SKIN: No evidence of acute infection at this time other than the lower extremity Results 24 hrs Current Medications Medications Dose Sig/Jewel Start Time Status Last (Trade) Ordered Route PRN Stop Time Admin Dose Reason Admin Lidocaine 5 ml ONCE ONCE 10/02/18 DC (Xylocaine SC 15:30 1% (Mpf)) 10/02/18 15:31 Procedures/MDM Patient was taken to a room, seen and examined Medical decision makin-year-old male presents for complications of his PICC line. The PICC line was reinserted. Patient otherwise appears to be clinically nontoxic with no acute of other emergent medical condition and seems appropriate for discharge at this time Departure Diagnosis: Primary Impression: PICC (peripherally inserted central catheter) flush Condition: Stable Patient Instructions: Picc Line Care MICHAEL WALDEN Oct 02, 2018 17:29
[2018-10-02 18:12] VITALS: BP 158/86; PULSE 72; RESP 16
== END 2018-10-02 18:14 | disposition home or self-care (01) ==
LOC: E/R 14:48
DX: Z45.2 Encounter for adjustment and management of vascular access device (principal); I10 Essential (primary) hypertension; E11.9 Type 2 diabetes mellitus without complications; E66.9 Obesity, unspecified
CPT/HCPCS: 36569; 71045; 76937